=== PATIENT | male | born 1970 | race Caucasian/White ===

== ENCOUNTER 2022-12-08 13:44 | Emergency (ER) | payer OTHER, SELFPAY ==
--- NOTE | ~2022-12-08 | CT_ITS ---
EXAMINATION: CT ABDOMEN AND PELVIS WITHOUT CONTRAST CLINICAL INFORMATION: Right flank pain COMPARISON: 12/09/2009 TECHNIQUE: Multidetector volumetric imaging was performed from the superior aspect of the liver through the pubic symphysis. Sagittal and coronal reformatted images were obtained on the technologist's workstation. This CT examination was performed using dose optimization techniques as appropriate, variously including the following: *Automated exposure control *Adjustment of mA and/or kV according to patient size (this includes techniques or standardized protocols for targeted exams where dose is matched to indication/reason for exam; i.e. extremities or head) *Use of iterative reconstruction technique DLP: 569. mGy-cm FINDINGS: LUNG BASES: Mild emphysema. Normal heart size. LIVER, GALLBLADDER, AND BILIARY TREE: The liver is normal in size and shape with decreased attenuation. No focal hepatic lesion or biliary ductal dilatation is present. The gallbladder is contracted with no evidence of radiopaque gallstones, gallbladder wall thickening, or obvious pericholecystic inflammatory changes. PANCREAS: Mild atrophy with no focal abnormality. SPLEEN: Unremarkable. ADRENAL GLANDS: Unremarkable. KIDNEYS AND URETERS: The kidneys are normal in size, shape, and attenuation. No hydronephrosis or hydroureter. Surgical clips noted along the right kidney and proximal right ureter. There are prominent right lower pole renal calculi. The dominant calculus has a somewhat staghorn appearance measuring up to 2.5 cm. This measures 1220 Hounsfield units. This is 8.5 cm from the posterior axillary line. The stone is increased in size from the 2009 study. No left-sided calculi. . BLADDER: Unremarkable. GASTROINTESTINAL TRACT: Fluid throughout the stomach without wall thickening. Normal caliber small bowel. No obstruction. The appendix is likely absent. No colonic wall thickening or acute inflammation. No free air or free fluid. ABDOMINAL WALL: No significant hernia is appreciated. LYMPH NODES: Normal. VASCULAR: Normal caliber aorta with mild atherosclerotic calcification. PELVIC VISCERA: Calcifications in the prostate. Normal sized prostate. The seminal vesicles are unremarkable. OSSEOUS STRUCTURES: No acute or suspicious osseous abnormality. Posterior fusion hardware at L5-S1 with a disc spacer in place. CT/CT abdomen pelvis wo IV con IMPRESSION: 1. Prominent right lower pole renal calculus. No hydronephrosis. 2. Hepatic steatosis. Fleischner guidelines were followed.
--- NOTE | 2022-12-08 13:46 | ED_ITS ---
HPI - Abdominal Pain General Chief Complaint: Abdominal Pain <Anahi Cheng CNP - Last Filed: 12/08/22 13:49> Stated Complaint: Kidney stone <Anahi Cheng CNP - Last Filed: 12/08/22 13:49> Time Seen by Provider: 12/08/22 22:21 <Anahi Cheng CNP - Last Filed: 12/08/22 13:49> Source: patient <Trinity Richardson MD - Last Filed: 12/08/22 23:21> Mode of arrival: ambulatory <Trinity Richardson MD - Last Filed: 12/08/22 23:21> History of Present Illness HPI narrative: 52-year-old male with history of renal colic and reports right-sided flank pain for proximally 2 weeks without nausea or vomiting or fever or chills but does describe some burning on urination. <Trinity Richardson MD - Last Filed: 12/08/22 23:21> Related Data Home Medications: Previous Rx's Medication Instructions Recorded metformin 500 mg tablet 500 mg PO BIDWMEAL #60 tabs 12/08/22 <Anahi Cheng CNP - Last Filed: 12/08/22 13:49> Allergies/Adverse Reactions: Allergies Allergy/AdvReac Type Severity Reaction Status Date / Time No Known Allergies Allergy Verified 12/08/22 13:49 <Anahi Cheng CNP - Last Filed: 12/08/22 13:49> Review of Systems Review of Systems Pertinent positives and negatives as stated in HPI <Trinity Richardson MD - Last Filed: 12/08/22 23:21> [facility] Past Medical History Source: nursing notes reviewed <Trinity Richardson MD - Last Filed: 12/08/22 23:21> Social History Social History: Social History Advance Directives: No Advance Directives Information Provided: No <Anahi Cheng CNP - Last Filed: 12/08/22 13:49> Physical Exam ED Vital Signs: Vital Signs - 24 hr 12/08/22 13:47 12/08/22 21:29 12/08/22 21:37 Temperature 97.9 F 98.8 F Pulse Rate 119 H 94 Respiratory Rate 20 16 Blood Pressure 191/100 H 183/108 H Pulse Oximetry 98 99 Oxygen Delivery Method Room Air Room Air BMI result Body Mass Index 24.3 <Anahi Cheng CNP - Last Filed: 12/08/22 13:49> Vital Signs - 24 hr 12/08/22 13:47 12/08/22 21:29 12/08/22 21:37 Temperature 97.9 F 98.8 F Pulse Rate 119 H 94 Respiratory Rate 20 16 Blood Pressure 191/100 H 183/108 H Pulse Oximetry 98 99 Oxygen Delivery Method Room Air Room Air BMI result Body Mass Index 24.3 VITAL SIGNS: Reviewed. GENERAL: Well developed, well nourished, in no acute distress. HEAD: Normocephalic/atraumatic EYES: PERRLA, EOMI LUNGS: Normal breath sounds. No adventitious sounds or accessory muscle use. SpO2<99> CARDIOVASCULAR: Regular rate and rhythm without noted murmurs ABDOMEN: Soft, non-tender, non-distended with bowel sounds. MUSCULOSKELETAL: No tenderness, deformities, or effusions noted on gross inspection. EXTREMITIES: No cyanosis, clubbing or edema. SKIN: Inspection of the skin reveals no rashes NEUROLOGIC: Alert and oriented x 4. Strength and sensation to light touch were grossly intact x 4. <Trinity Richardson MD - Last Filed: 12/08/22 23:21> Course Course Course Narrative: This is an RME: Additional HPI, ROS, PE not included below will be deferred to primary provider. Patient is a 52-year-old male with past medical history of kidney stones who presents emergency department for evaluation of abdominal pain. Complaining of right flank pain, onset was a few weeks ago, pain is intermittent varying intensity, has not improved over the past few weeks . he has associated dysuria. Denies fevers, chills, nausea, vomiting, hematuria. Reports last known to be in approximately 2013 by which he underwent lithotripsy. Plan: labs, U/A, CT abdomen and pelvis <Anahi Cheng CNP - Last Filed: 12/08/22 13:49> Medical Decision Making Medical Decision Making MDM Narrative: 52-year-old male with history and clinical presentation after review of all investigations most consistent with new onset diabetes, no evidence of renal colic and noted to have a prominent right lower pole renal calculus without h ydronephrosis. Patient was informed of results, received IV fluids no evidence of acidosis or HHS and will be discharged with analgesics, metformin and strict instructions to follow-up with a primary care provider and also provided with a referral to follow-up with urology. He is otherwise hemodynamically stable for discharge. <Trinity Richardson MD - Last Filed: 12/08/22 23:21> Differential Diagnosis Please see the discussion above <Trinity Richardson MD - Last Filed: 12/08/22 23:21> Lab Data Please see the discussion above <Trinity Richardson MD - Last Filed: 12/08/22 23:21> Result Diagrams: 12/08/22 15:40 12/08/22 15:40 <Anahi Cheng CNP - Last Filed: 12/08/22 13:49> Labs: Lab Results 12/08/22 12/08/22 Range/Units 15:40 15:40 WBC 8.1 (4.8-10.8) X10*3/uL RBC 6.35 H (4.60-5.80) X10*6/uL Hgb 12.3 L (14.0-18.0) g/dl Hct 39.7 L (42.0-52.0) % MCV 62.5 L (80.0-98.0) fL MCH 19.4 L (27.0-33.0) pg MCHC 31.0 (31.0-36.0) g/dl RDW 16.2 H (11.0-16.0) % Plt Count 244 (160-400) X10*3/uL MPV 9.3 L (9.4-12.4) fL Immature Gran % (Auto) 0.9 H (0.0-0.4) % Neut % (Auto) 68.1 (45-73) % Lymph % (Auto) 20.4 (20-40) % Kenedy % (Auto) 7.4 (2-11) % Eos % (Auto) 2.6 (0-4) % Baso % (Auto) 0.6 (0-2) % Lymph # (Auto) 1.7 (1.2-4.9) X10*3/uL [place]enedy # (Auto) 0.6 (0.1-1.2) X10*3/uL Eos # (Auto) 0.2 (0.0-0.4) X10*3/uL Baso # (Auto) 0.1 (0.0-0.2) X10*3/uL Abs Immat Gran (auto) 0.07 H (0.00-0.03) X10*3/uL Absolute Neuts (auto) 5.6 (2.0-8.3) x10*3/uL Absolute Nucleated RBC 0.000 (0.0-0.012) X10*3/uL Nucleated RBC % (auto) 0.0 (0.0-0.2) /100WBC Sodium 136 (135-145) mmol/L Potassium 4.4 (3.3-5.1) mmol/L Chloride 99 (96-108) mmol/L Carbon Dioxide 29 (22-29) mmol/L Anion Gap 12 (12-20) BUN 13 (9-16) mg/dL Creatinine 0.85 (0.5-1.4) mg/dL Estim Creat Clear Calc 118.1 Estimated GFR > 60 Random Glucose 327 H (60-115) mg/dL Calcium 10.0 (8.4-10.2) mg/dL Total Bilirubin 0.4 (0.0-1.0) mg/dL AST 26 (5-37) U/L ALT 40 (0-40) U/L Alkaline Phosphatase 100 (39-117) U/L Total Protein 8.0 (6.5-8.0) g/dL Albumin 4.5 (3.5-5.0) g/dL <Anahi Cheng, [employer] - Last Filed: 12/08/22 13:49> Lab Results 12/08/22 12/08/22 Range/Units 15:40 15:40 WBC 8.1 (4.8-10.8) X10*3/uL RBC 6.35 H (4.60-5.80) X10*6/uL Hgb 12.3 L (14.0-18.0) g/dl Hct 39.7 L (42.0-52.0) % MCV 62.5 L (80.0-98.0) fL MCH 19.4 L (27.0-33.0) pg MCHC 31.0 (31.0-36.0) g/dl RDW 16.2 H (11.0-16.0) % Plt Count 244 (160-400) X10*3/uL MPV 9.3 L (9.4-12.4) fL Immature Gran % (Auto) 0.9 H (0.0-0.4) % Neut % (Auto) 68.1 (45-73) % Lymph % (Auto) 20.4 (20-40) % Kenedy % (Auto) 7.4 (2-11) % Eos % (Auto) 2.6 (0-4) % Baso % (Auto) 0.6 (0-2) % Lymph # (Auto) 1.7 (1.2-4.9) X10*3/uL Kenedy # (Auto) 0.6 (0.1-1.2) X10*3/uL Eos # (Auto) 0.2 (0.0-0.4) X10*3/uL Baso # (Auto) 0.1 (0.0-0.2) X10*3/uL Abs Immat Gran (auto) 0.07 H (0.00-0.03) X10*3/uL Absolute Neuts (auto) 5.6 (2.0-8.3) x10*3/uL Absolute Nucleated RBC 0.000 (0.0-0.012) X10*3/uL Nucleated RBC % (auto) 0.0 (0.0-0.2) /100WBC Sodium 136 (135-145) mmol/L Potassium 4.4 (3.3-5.1) mmol/L Chloride 99 (96-108) mmol/L Carbon Dioxide 29 (22-29) mmol/L Anion Gap 12 (12-20) BUN 13 (9-16) mg/dL Creatinine 0.85 (0.5-1.4) mg/dL Estim Creat Clear Calc 118.1 Estimated GFR > 60 Random Glucose 327 H (60-115) mg/dL Calcium 10.0 (8.4-10.2) mg/dL Total Bilirubin 0.4 (0.0-1.0) mg/dL AST 26 (5-37) U/L ALT 40 (0-40) U/L Alkaline Phosphatase 100 (39-117) U/L Total Protein 8.0 (6.5-8.0) g/dL Albumin 4.5 (3.5-5.0) g/dL <Trinity Richardson MD - Last Filed: 12/08/22 23:21> Radiology Impression Radiologist Impression: My interpretation of the imaging study is in agreement with radiology's impression. <Trinity Richardson MD - Last Filed: 12/08/22 23:21> Chronic Conditions Patient?s care impacted by: Diabetes <Trinity Richardson MD - Last Filed: 12/08/22 23:21> Critical Care Time Critical Care Time Critical Care Time: Yes <Trinity Richardson MD - Last Filed: 12/08/22 23:21> Total Critical Care Time: 30 <Trinity Richardson MD - Last Filed: 12/08/22 23:21> Attestation: I personally attest to this time spent taking care of the patient. <Trinity Richardson MD - Last Filed: 12/08/22 23:21> Discharge Plan Discharge Clinical Impression: Hyperglycemia due to diabetes mellitus, Calculus, renal, Diabetes mellitus, new onset <Anahi Cheng CNP - Last Filed: 12/08/22 13:49> Patient Disposition: Home, Self-Care <Anahi Cheng CNP - Last Filed: 12/08/22 13:49> Instructions: Type 2 Diabetes in Adults: New Diagnosis (ED), Diabetes and Nutrition (ED), Diabetes and Exercise (ED) <Anahi Cheng CNP - Last Filed: 12/08/22 13:49> Additional Instructions: 1. You have been diagnosed with new onset diabetes, you will be started on metformin, please take 1 pill daily for 3 days then follow prescription instructions. 2. You need to follow-up with your primary care provider as soon as possible, I will be giving you 1 month of medication. If you run out before you can get a follow-up appointment please return to this emergency room or any emergency room. 3. Please find the referral for Urology below. Call them on Sunday. Return to the ER for any worsening symptoms. <Anahi Cheng CNP - Last Filed: 12/08/22 13:49> Prescriptions: New metformin 500 mg tablet 500 mg PO BIDWMEAL Qty: 60 0RF <Anahi Cheng CNP - Last Filed: 12/08/22 13:49> Referrals: Franki Huggins MD [Physician] - <Anahi Cheng CNP - Last Filed: 12/08/22 13:49>
[2022-12-08 13:47] VITALS: BP 191/100; PULSE 119; RESP 20; TEMP 36.6; O2SAT 98; BMI 24.3
[2022-12-08 15:46] LABS: MANUAL DIFF FLAG NO
[2022-12-08 15:53] LABS: Basophils Absolute Auto 0.1 X10*3/uL (0.0-0.2); Basophils Percent Auto 0.6 % (0-2); Eosinophils Absolute Auto 0.2 X10*3/uL (0.0-0.4); Eosinophils Percent Auto 2.6 % (0-4); Hematocrit 39.7 % (42.0-52.0); Hemoglobin 12.3 g/dl (14.0-18.0); Imm Gran Abs Auto 0.07 X10*3/uL (0.00-0.03); Imm Gran Pct Auto 0.9 % (0.0-0.4); Lymphocytes Absolute Auto 1.7 X10*3/uL (1.2-4.9); Lymphocytes Percent Auto 20.4 % (20-40); Mean Corpuscular Hemoglobin 19.4 pg (27.0-33.0); Mean Platelet Volume 9.3 fL (9.4-12.4); Monocytes Absolute Auto 0.6 X10*3/uL (0.1-1.2); Monocytes Percent Auto 7.4 % (2-11); Neutrophils Absolute Auto 5.6 x10*3/uL (2.0-8.3); Neutrophils Percent Auto 68.1 % (45-73); Platelet Count 244 X10*3/uL (160-400); Red Blood Count 6.35 X10*6/uL (4.60-5.80); Red Cell Distribution Width 16.2 % (11.0-16.0); White Blood Count 8.1 X10*3/uL (4.8-10.8)
[2022-12-08 16:03] LABS: Alanine Aminotransferase 40 U/L (0-40); Albumin Level 4.5 g/dL (3.5-5.0); Alkaline Phosphatase 100 U/L (39-117); Anion Gap 12 (12-20); Aspartate Amino Transferase 26 U/L (5-37); Bilirubin Total 0.4 mg/dL (0.0-1.0); Blood Urea Nitrogen 13 mg/dL (9-16); Carbon Dioxide 29 mmol/L (22-29); Chloride 99 mmol/L (96-108); Creatinine Clr Calc Pharmacy 118.1; Estimated Glomerular Filt Rate > 60; Glucose Random 327 mg/dL (60-115); Potassium 4.4 mmol/L (3.3-5.1); Sodium 136 mmol/L (135-145)
[2022-12-08 16:06] LABS: Mean Corpuscular Volume 62.5 fL (80.0-98.0)
[2022-12-08 21:29] VITALS: BP 183/108; PULSE 94; RESP 16; O2SAT 99
[2022-12-08 21:37] VITALS: TEMP 37.1
[2022-12-08] MEDS: 0.9 % Sodium Chloride 1,000 ML 999 ML IV (23:27)
[2022-12-08] MEDS: Acetaminophen 325 MG TABLET 975 MG PO (23:28)
[2022-12-08] MEDS: Ketorolac Tromethamine 30 MG/ML VIAL 15 MG IVPUSH (23:28)
[2022-12-08 23:39] LABS: Appearance Urine Clear; Color Urine Yellow; Glucose Urine UA Negative (Negative); Leukocyte Esterase Urine Small (1+) (Negative); Nitrite Urine Negative (Negative); Specific Gravity - Urine 1.025 (1.005-1.025); UMIC TRIGGER UACC YES; Urine Blood Moderate (2+) (Negative); Urine Ketones Negative (Negative); Urine Protein 30 (1+) mg/dL (Neg-Trace)
[2022-12-08 23:43] LABS: Bacteria Urine None Seen (None Seen); Hyaline Casts Urine 0-2 /LPF (0-2); RBC Urine >20 /HPF (0-2); Squamous Epithelial Cell Urine 0-2 /HPF (0-2); UACC Culture Trigger YES; WBC Urine 21-50 /HPF (0-5)
[2022-12-09 00:35] LABS: Glucose, Whole Blood 239 mg/dL (60-115)
[2022-12-09 00:37] VITALS: BP 154/93; PULSE 79; RESP 16; TEMP 36.2; O2SAT 99
[2022-12-09 05:10] LABS: Estimated Average Glucose 194 mg/dL; Hemoglobin A1c % 8.4 %
== END 2022-12-09 00:43 | disposition home or self-care (01) ==
PROVIDERS: Nurse Practitioner Family; Emergency Provider Student in an Organized Health Care Education/Training Program
DX: E11.65 Type 2 diabetes mellitus with hyperglycemia (principal); N20.0 Calculus of kidney; Z79.899 Other long term (current) drug therapy
CPT/HCPCS: 36415; 74176; 80053; 81001; 82947; 83036; 85025; 87086; 96374; 99284; 99285; J1885

== ENCOUNTER → 2022-12-18 08:50 | Outpatient (BNVA) | payer OTHER, SELFPAY | PROVIDERS: PCP Hospitalist; Visit Provider Urology | DX: N20.0 Calculus of kidney (principal); N12 Tubulo-interstitial nephritis, not specified as acute or chronic; R10.9 Unspecified abdominal pain; Z85.528 Personal history of other malignant neoplasm of kidney | CPT/HCPCS: 99202 ==

== ENCOUNTER → 2022-12-27 08:42 | Outpatient (BNVA) | payer OTHER, SELFPAY | PROVIDERS: PCP Hospitalist; Visit Provider Urology | DX: N20.0 Calculus of kidney (principal) | CPT/HCPCS: 99212 ==

== ENCOUNTER → 2023-01-31 09:46 | Outpatient (BNVA) | payer OTHER, SELFPAY | PROVIDERS: PCP Hospitalist; Visit Provider Urology | DX: N12 Tubulo-interstitial nephritis, not specified as acute or chronic (principal); N20.0 Calculus of kidney | CPT/HCPCS: Q3014 ==

== ENCOUNTER 2023-02-12 13:28 | Day surgery (SDC) | payer OTHER, SELFPAY ==
[2023-02-07 15:45] VITALS: BMI 23.1
--- NOTE | 2023-02-09 11:01 | P.CONAN_ITS ---
Documented by User: Jacinda Rehman NP 02/09/23 11:02 HPI - Anesthesia Eval Consult details Narrative: 52yo M for Right Cystoscopy, Ureteroroscopy, Retro, Laser, possible stent PMFSH Active Problems Active Problems: All Active Problems (Updated 02/07/23 @ 15:35 by Helena Boucher RN) History of kidney cancer (Acute) Staghorn calculus (Acute) Pyelonephritis (Acute) Right renal stone (Acute) Right flank pain (Acute) Opioid use disorder (Acute) Dental caries (Acute) Disrupted sleep-wake cycle (Acute) Diabetes (Acute) Past Medical History Medical History (Updated 02/12/23 @ 13:57 by Isabela Villa) COPD (chronic obstructive pulmonary disease) Diabetes History of kidney cancer Methadone dependence Surgical History Surgical History (Updated 02/12/23 @ 13:57 by Isabela Villa) History of kidney surgery Hx of appendectomy Previous back surgery Social History Social History Patient Tobacco Use Status: Former Tobacco user Tobacco use type: Cigarette Smoked in Last 30 Days: No e-Cigarette/Vaping Use: Never Used Use of substances other than those prescribed or required for medical reasons: No Are you DNR?: No Advance Directives: No Advance Directives Information Provided: Yes Current occupational status: disabled Meds Allergies Allergy/AdvReac Type Severity Reaction Status Date / Time No Known Allergies Allergy Verified 02/12/23 13:58 Home Medications Medication Instructions Recorded Confirmed Last Taken Type omeprazole 40 mg capsule,delayed 40 mg PO DAILY 12/15/22 02/12/23 Unknown History release methadone 24 mg PO DAILY 12/21/22 02/12/23 02/11/23 History albuterol 02/12/23 Unknown History hydromorphone 2 mg tablet 2 mg PO Q6H PRN pain 02/12/23 02/12/23 02/12/23 07:00 History 4 MG omeprazole 02/12/23 02/12/23 History Exam Exam Date and Time: February 09, 2023 1101 Height,Weight and Vital Signs: Height 6 ft 2 in Weight 81.647 kg Pertinent Lab Results Pertinent Lab Results: Laboratory Tests 12/08/22 12/08/22 15:40 15:40 WBC 8.1 Hgb 12.3 L Hct 39.7 L Plt Count 244 Sodium 136 Potassium 4.4 Chloride 99 Carbon Dioxide 29 BUN 13 Creatinine 0.85 Assessment and Plan Assessment Anesthesia Assessment: Chart Reviewed Documented by User: Tina Reddy MD 02/12/23 15:14 [facility] Past Medical History Medical History (Updated 02/12/23 @ 13:57 by Isabela Villa) COPD (chronic obstructive pulmonary disease) Diabetes History of kidney cancer Methadone dependence Family History Family history of problems with anesthesia: No Surgical History Surgical History (Updated 02/12/23 @ 13:57 by Isabela Villa) History of kidney surgery Hx of appendectomy Previous back surgery History of Problems with Anesthesia: No Social History Social History Patient Tobacco Use Status: Former Tobacco user Tobacco use type: Cigarette Smoked in Last 30 Days: No e-Cigarette/Vaping Use: Never Used Use of substances other than those prescribed or required for medical reasons: No Are you DNR?: No Advance Directives: No Advance Directives Information Provided: Yes Current occupational status: disabled Meds Allergies Allergy/AdvReac Type Severity Reaction Status Date / Time No Known Allergies Allergy Verified 02/12/23 13:58 Home Medications Medication Instructions Recorded Confirmed Last Taken Type omeprazole 40 mg capsule,delayed 40 mg PO DAILY 12/15/22 02/12/23 Unknown History release methadone 24 mg PO DAILY 12/21/22 02/12/23 02/11/23 History albuterol 02/12/23 Unknown History hydromorphone 2 mg tablet 2 mg PO Q6H PRN pain 02/12/23 02/12/23 02/12/23 07:00 History 4 MG omeprazole 02/12/23 02/12/23 History Exam Airway Mallampati Class: II (missing multiple teeth, denies anything loose) TM Dist: >3cm Neck ROM: Full Heart: rrr Lungs: cta Assessment and Plan Assessment Anesthesia Assessment: Anesthesia Plan Discussed (hiatory of GERD, took medicine , no symptoms) Final Anesthetic Review Family History of Problems with Anesthesia: No History of Problems with Anesthesia: No NPO: Yes ASA Class: II Final Preanesthetic Review: No Changes in Pt Med Stat, Meds/Allgs Chart Reviewed and Consent Obtained/Reviewed Patient Risk: Intermediate Procedure Risk: Intermediate Anesthetic Plan Anesthetic Plan: GA Disposition: Standard PACU
[2023-02-12] VITALS (10 sets, daily range): BP systolic 136–181; BP diastolic 81–107; PULSE 90–124; RESP 13–18; TEMP 36.3–37.1; O2SAT 96–99; BMI 24.4
--- NOTE | ~2023-02-12 | FL_ITS ---
EXAMINATION: XR FLUOROSCOPY WITH IMAGES CLINICAL INFORMATION: Urinary tract calculi. COMPARISON: CT abdomen and pelvis noncontrast 12/08/2022. TECHNIQUE: Fluoroscopy Supervised By: Dr. Franki Huggins. Fluoroscopy Time: 39 seconds. Cumulative Dose: 7.74 mGy. Images: 4. FINDINGS: There is guidewire and contrast in the right renal collecting system on initial images. Final image shows right ureteral stent with proximal pigtail end overlying upper pole right collecting system. There are known right renal calculi on recent CT. FL/FL guidance in OR IMPRESSION: Fluoroscopy for urologic procedures.
[2023-02-12 14:04] LABS: Glucose, Whole Blood 221 mg/dL (60-115)
[2023-02-12] MEDS: Lactated Ringers 1,000 ML 100 ML IVCONT (14:14)
--- NOTE | 2023-02-12 14:15 | PC.NURSE ---
DR. KNOX MADE AWARE OF PATIENTS HR IN THE 120'S. PATIENT ALSO DID NOT TAKE MORNING METHADONE. PATIENT TOOK 4MG PO DILAUDID FOR PAIN THIS MORNING, STILL CURRENTLY IN 8/10 PAIN, ASKING FOR MORE PAIN MEDICATION NOW. UTOX ORDERED AND URINE OBTAINED. AWAITING RESULTS.
[2023-02-12 15:04] LABS: Amphetamine Screen Urine Not Detected (Not Detect); Barbiturates, Urine Not Detected (Not Detect); Benzodiazepines Screen Urine Not Detected (Not Detect); Cannabinoid Screen Urine Not Detected (Not Detect); Cocaine Screen Urine Not Detected (Not Detect); Fentanyl, urine Not Detected (Not Detect); Opiate Screen Urine POSITIVE (Not Detect); Phencyclidine Screen Urine Not Detected (Not Detect)
--- NOTE | 2023-02-12 15:04 | PC.NURSE ---
REPORT GIVEN TO YUMIKO HEAT CURER AT 1300
--- NOTE | 2023-02-12 15:05 | MHC.SHP ---
Pre-Procedural Eval Section A Date of Service: 02/12/23 The patient is an INPATIENT: No Changes since office visit: No Cold of Flu in the past 2 weeks, No New Medical Problems, No Changes in Medication and No Patient answered all questions The History & Physical has been completed within 30 days and I have reviewed it.: Yes Section B Chief Complaint: Calculus of kidney Allergies: Allergies Allergy/AdvReac Type Severity Reaction Status Date / Time No Known Allergies Allergy Verified 02/12/23 13:58 Review of Systems Sugical H&P ROS: Negative: Constitution, Cardiovascular, Respiratory, Neurological, Psychiatric, Hem-Onc, Allergic/Immunologic, Gastrointestinal, Genitourinary, Musculoskeletal, Integumentary, Endocrine and Eyes/Ears/Nose/Throat Exam Surgical H&P Exam: Normal: HEENT, Normal: Heart, Normal: Lungs, Normal: Extremities, Normal: Abdomen, Normal: Skin and Normal: Neurological Plan Diagnosis/Plan: Unchanged (Cystoscopy, right retrograde, right ureteroscopy with laser lithotripsy stent placement) I have reviewed the history and physical and performed a pertinent physical examination on my patient. No changes have occurred unless specified. Time Spent With Patient Time: Total time managing care of this patient today ____ minutes.
--- NOTE | 2023-02-12 16:40 | W.PM.OPN ---
Operative Note Operative Note Date of Service: 02/12/23 Narrative: PreOperative Diagnosis: Lower pole branching stone, staghorn Post Operative Diagnosis: Right lower pole branching stone, staghorn Procedure: - cystoscopy, right retrograde - right dilatation of ureteric orifice under fluoroscopy - right ureteroscopy, laser lithotripsy, stone basketing - right stent placement Surgeon: Dr Franki Huggins Anesthesia: General Indications for procedure: Right lower pole branching staghorn. Prior PCNL would not like to repeat. Pain. Recommend ureteroscopy with laser lithotripsy. May require more than 1 procedure. He understands this is potentially staged. He would rather do this in a staged fashion being able to return home each evening Procedure: After informed consent was verified patient was brought to the operating placed in supine position. Anesthesia was administered per protocol. Patient was placed in modified dorsal lithotomy position and prepped and draped in a sterile fashion. Safety pause time-out and side of surgery confirmed. Antibiotics confirmed. 22 Romansh cystoscope was inserted per urethra. Bladder was normal in its entirety. Both ureteric orifices were in normal position. The right ureteric orifice was cannulated and a retrograde examination was performed. Filling defect lower pole anterior and posterior calices.. A Sensor guidewire was placed up to the level of the renal pelvis under fluoroscopy. The rigid cystoscope was removed and the inner cannula of ureteric access sheath was used under fluoroscopy to dilate the ureteric orifice. The ureteric access sheath was placed and the inner cannula with access wire removed. The digital flexible ureteral scope was placed. Stone was encountered. Using a 272 laser fiber visible accessible stone was broken into small pieces. This the 2 arms of stone in 2 separate pieces. They felt back into the lower pole calyx. Due to the anatomy the kidney and prior partial nephrectomy these were unable to be reached. A decision was made to stop the procedure after attempting to manipulate the stone with the basket did not work. Will require ESWL to complete. At the completion of the stone procedure a Sensor wire was placed back into the renal pelvis. The rigid cystoscope was backloaded over the wire and advanced into the bladder. A 6 Romansh by variable cm double-J stent was placed into the renal pelvis and bladder under a combination of fluoroscopy and direct visualization. The bladder was emptied. The patient tolerated the procedure well and was extubated in the operating room, and transferred in stable condition to the recovery area. Pathology: - Drains: As above
[2023-02-12] MEDS: Phenazopyridine HCL 100 MG TABLET PO (17:01)
[2023-02-12] MEDS: HYDROmorphone HCl 2 MG TABLET PO (17:26)
[2023-02-12] MEDS: oxyBUTYnin chloride ER 5 MG TAB.ER.24 PO (18:08)
== END 2023-02-12 19:00 | disposition home or self-care (01) ==
PROVIDERS: Anesthesiology; PCP Hospitalist; Visit Provider Urology
PROC: (CPT 52356; principal; 2023-02-12 14:40)
DX: N20.0 Calculus of kidney (principal); Z85.528 Personal history of other malignant neoplasm of kidney; Z90.5 Acquired absence of kidney; N12 Tubulo-interstitial nephritis, not specified as acute or chronic; J44.9 Chronic obstructive pulmonary disease, unspecified; E11.9 Type 2 diabetes mellitus without complications; Z79.84 Long term (current) use of oral hypoglycemic drugs; Z79.891 Long term (current) use of opiate analgesic; Z79.899 Other long term (current) drug therapy; Z98.890 Other specified postprocedural states; Z87.891 Personal history of nicotine dependence
CPT/HCPCS: 52356; 80307; 82947; C1758; C1769; C2617; J0131; J1100; J1885; J1956; J2250; J2405; J3010; Q9967

== ENCOUNTER 2023-02-20 12:54 | Outpatient (AMB) | payer OTHER, SELFPAY ==
--- NOTE | 2023-02-20 12:56 | MHC.OFFVIS ---
Intake Intake Visit Reasons: Stent removal-post op Intake Note: Patient is present for Stent Removal Stent Placed: 02/12/23 Urology Med: Oxybutynin, Tamsulosin Antibiotic Allergy:None Blood Thinner: None Disposable Cystoscope LOT: [id number] EXP: 04/12/2025 Allergies No Known Allergies Allergy (Verified 02/20/23 12:57) HPI HPI Comments History of Present Illness Details Chirag is a pleasant male. He is a patient of . He is seen for the following urologic conditions - nephrolithiasis - renal cell carcinoma Discussion regarding prior surgery Had initially been planned on stent removal We will do ESWL and remove stent at time of procedure He would prefer this Nephrolithiasis Prior partial nephrectomy open 2004 Dr. Amor Appears to have developed lower pole stone Prior ESWL Concomitant diabetes with metformin Imaging - 12/28 CT Right dominant calculus has a somewhat staghorn appearance measuring up to 2.5 cm Intervention - 02/27 ureteroscopy with laser lithotripsy right side Recommendation for ESWL of remnant fragments [facility] Medical History COPD (chronic obstructive pulmonary disease) Diabetes History of kidney cancer Methadone dependence Surgical History History of kidney surgery Hx of appendectomy Previous back surgery Social History Patient Tobacco Use Status: Former Tobacco user Tobacco use type: Cigarette e-Cigarette/Vaping Use: Never Used Current occupational status: disabled Review of Systems Const Denies chills and Denies fever(s) Card Reports no additional complaints and Denies syncope Resp Denies cough GI Denies abdominal pain and Denies heartburn Reports as per HPI and Denies change in libido Neuro Denies syncope Psych Denies change in libido Endo Denies change in libido Physical Exam Const General: cooperative, healthy appearing, comfortable and no acute distress Orientation/consciousness: patient oriented x3 HEENT Face and sinus: Yes normal facial exam Mouth: moist mucous membranes Neck Neck: Yes normal visual inspection, Yes full ROM and Yes trachea midline Chest Chest palpation & inspection: normal inspection of the chest Resp Effort & Inspection: normal respiratory effort, able to speak in complete sentences and no respiratory distress GI Inspection: Yes normal to inspection Back/Spine/Pelvis Cervical Spine: normal cervical lordosis Thoracic/Lumbar Spine: thoracic and lumbar spine normal to inspection Skin General skin exam: no rashes or lesions noted Neuro General: patient oriented x3, gait normal, tone normal and moves all extremities Extrem General: Yes normal to inspection and Yes capillary refill normal Office Procedures Cystoscopy Consent Discussed risk and benefit or proposed procedure with the patient. Information consent for procedure given to the patient. Discussed technical aspects, risks, benefits and alternatives in full. Addressed all of the patient's questions and concerns regarding the procedure. The patient demonstrated knowledge and understanding. They wish to proceed with this procedure. Preparation The patient was prepped in the usual manner. A enterprise security architect was present and in the room. Genitalia was prepped with betadine solution in a sterile manner. Lidocaine Jelly 2% was placed into the urethra and 16Fr flexible Olympus cystoscope was inserted into the meatus after adequate lubrication. Assessment & Plan Assessment & Plan (1) Staghorn calculus: Code(s): N20.0 - Calculus of kidney (2) History of kidney cancer: Code(s): Z85.528 - Personal history of other malignant neoplasm of kidney Plan Plan for ESWL of right remnant with stent removal Orders: Orders AMB Cystoscopy 02/20/23 N20.0 - Calculus of kidney AMB Urinalysis Automated 02/20/23 Z13.9 - Encounter for screening, unspecified Medications: New naproxen 500 mg PO ONCE 1 tab 0RF N20.0 - Calculus of kidney nitrofurantoin monohyd/m-cryst 100 mg 100 mg PO ONCE 1 cap 0RF N20.0 - Calculus of kidney lidocaine HCl 2% 10 mL intra-urethral ONCE 10 mL 0RF N20.0 - Calculus of kidney Patient Instructions: Imaging studies, laboratory and physical exam results were discussed and reviewed in detail. No major barriers to patient understanding were identified. An opportunity to ask questions regarding the treatment plan was provided. All questions were answered. The patient expressed understanding and agreement with the above treatment plan. The patient is aware they should contact our office by phone for worsening of their current condition or the appearance of new urologic symptoms. Compliance is encouraged with any medications and followup testing that is ordered. It is a privilege to participate in the urologic care of your patient. If you have any questions or concerns regarding treatment for the above conditions, or other urologic issues, please do not hesitate to contact me. The office telephone contact is [phone]. This note is constructed using voice recognition software. While every effort has been made to ensure accuracy production broacher errors may have been included. Yours sincerely, Dr Franki Huggins MD, [facility] - Urology Providers of Expert, Compassionate Care for the Genitourinary System Coding Level of Care Code Est Pt Level 3 (88436) Diagnoses Staghorn calculus N20.0 History of kidney cancer Z85.528
== END 2023-02-20 13:55 | disposition home or self-care (01) ==
LOC: HO.HUSH 12:54
PROVIDERS: PCP Hospitalist; Visit Provider Urology
DX: N20.0 Calculus of kidney (principal); Z85.528 Personal history of other malignant neoplasm of kidney
CPT/HCPCS: 99213

== ENCOUNTER → 2023-02-20 12:54 | Outpatient (BNVA) | payer OTHER, SELFPAY | PROVIDERS: PCP Hospitalist; Visit Provider Urology | DX: N20.0 Calculus of kidney (principal); Z85.528 Personal history of other malignant neoplasm of kidney | CPT/HCPCS: 99212 ==

== ENCOUNTER 2023-03-14 06:03 | Day surgery (SDC) | payer OTHER, SELFPAY ==
--- NOTE | 2023-03-13 10:42 | HO.ANESPROP2 ---
Documented by User: Jacinda Rehman NP 03/13/23 10:44 HPI - Anesthesia Eval Consult details Narrative: 52yo M for Right ESWL with Stent Removal s/p cysto, etc 02/2023 with GA-LMA 4 ?Methadone vs hydromorphone daily PMFSH Active Problems Active Problems: All Active Problems (Updated 02/12/23 @ 13:57 by Isabela Villa) History of kidney cancer (Acute) Staghorn calculus (Acute) Pyelonephritis (Acute) Right renal stone (Acute) Right flank pain (Acute) Opioid use disorder (Acute) Dental caries (Acute) Disrupted sleep-wake cycle (Acute) Diabetes (Acute) Past Medical History Medical History COPD (chronic obstructive pulmonary disease) Diabetes History of kidney cancer Methadone dependence Family History Family history of problems with anesthesia: No Surgical History Surgical History History of kidney surgery Hx of appendectomy Previous back surgery History of Problems with Anesthesia: No Social History Social History Patient Tobacco Use Status: Former Tobacco user Tobacco use type: Cigarette e-Cigarette/Vaping Use: Never Used Current occupational status: disabled Meds Allergies Allergy/AdvReac Type Severity Reaction Status Date / Time No Known Allergies Allergy Verified 02/20/23 12:57 Home Medications Medication Instructions Recorded Confirmed Last Taken Type omeprazole 40 mg capsule,delayed 40 mg PO DAILY 12/15/22 02/12/23 03/13/23 History release methadone 24 mg PO DAILY 12/21/22 02/12/23 03/13/23 History albuterol 02/12/23 12/12/22 History Exam Exam Date and Time: March 13, 2023 1042 Pertinent Lab Results Pertinent Lab Results: Laboratory Tests 12/08/22 12/08/22 15:40 15:40 WBC 8.1 Hgb 12.3 L Hct 39.7 L Plt Count 244 Sodium 136 Potassium 4.4 Chloride 99 Carbon Dioxide 29 BUN 13 Creatinine 0.85 Assessment and Plan Assessment Anesthesia Assessment: Chart Reviewed Final Anesthetic Review Family History of Problems with Anesthesia: No History of Problems with Anesthesia: No Documented by User: Marilin Mena MD 03/14/23 08:57 PMFSH Active Problems Active Problems: All Active Problems (Updated 03/14/23 @ 07:15 by Marilin Mena MD) History of kidney cancer (Acute) Staghorn calculus (Acute) Pyelonephritis (Acute) Right renal stone (Acute) Right flank pain (Acute) Opioid use disorder (Acute) Dental caries (Acute) Disrupted sleep-wake cycle (Acute) Diabetes (Acute) Past Medical History Medical History COPD (chronic obstructive pulmonary disease) Diabetes History of kidney cancer Methadone dependence Surgical History Surgical History History of kidney surgery Hx of appendectomy Previous back surgery Social History Social History Patient Tobacco Use Status: Former Tobacco user Tobacco use type: Cigarette e-Cigarette/Vaping Use: Never Used Current occupational status: disabled Meds Allergies Allergy/AdvReac Type Severity Reaction Status Date / Time No Known Allergies Allergy Verified 02/20/23 12:57 Home Medications Medication Instructions Recorded Confirmed Last Taken Type omeprazole 40 mg capsule,delayed 40 mg PO DAILY 12/15/22 02/12/23 03/13/23 History release methadone 24 mg PO DAILY 12/21/22 02/12/23 03/13/23 History albuterol 02/12/23 12/12/22 History Exam Height,Weight and Vital Signs: Height 6 ft 2 in Weight 86.183 kg Vital Signs Temp Pulse Resp BP Pulse Ox O2 Del Method 03/14/23 07:34 157/83 H 03/14/23 07:00 98 F 106 H 20 192/97 H 99 Room Air Pertinent Lab Results Pertinent Lab Results: Laboratory Tests 12/08/22 12/08/22 15:40 15:40 WBC 8.1 Hgb 12.3 L Hct 39.7 L Plt Count 244 Sodium 136 Potassium 4.4 Chloride 99 Carbon Dioxide 29 BUN 13 Creatinine 0.85 Lab Results 03/14/23 Range/Units 06:56 POC Glucose 188 H (60-115) mg/dL Airway Mallampati Class: II TM Dist: >3cm Neck ROM: Full Loose/Missing/Broken Teeth: Yes (Many missing. Some broken. denies loose) Heart: RRR Lungs: CTAB Assessment and Plan Assessment Anesthesia Assessment: Anesthesia Plan Discussed Final Anesthetic Review NPO: Yes ASA Class: II Final Preanesthetic Review: No Changes in Pt Med Stat, Meds/Allgs Chart Reviewed, Consent Obtained/Reviewed and Anes Risks/Benef Reviewed Patient Risk: Low Procedure Risk: Low Assessment/Block/Sedation in SS: Assess/Block/Sedation-SS Anesthetic Plan Anesthetic Plan: GA Disposition: Standard PACU
[2023-03-14] VITALS (8 sets, daily range): BP systolic 148–192; BP diastolic 83–97; PULSE 92–109; RESP 18–20; TEMP 36.1–36.7; O2SAT 95–99; BMI 24.4
--- NOTE | ~2023-03-14 | XR_ITS ---
EXAMINATION: XR ABDOMEN KUB CLINICAL INDICATION: Right kidney stone COMPARISON: CT scan of the abdomen and pelvis dated 12/08/2022. TECHNIQUE: AP view of the abdomen. FINDINGS: A right ureteral stent is noted in place. A small staghorn type calculus is again seen overlying the lower pole the right kidney. No radiopaque densities overlie the left kidney or along the expected courses of the ureters bilaterally. There is a nonobstructive bowel gas pattern. Mild gas and stool seen within the colon distally to the rectum. Spinal fusion hardware is noted at L5-S1 without abnormality. XR/XR KUB IMPRESSION: 1. Right ureteral stent in place with right lower pole staghorn type calculus without significant change. 2. Nonobstructive bowel gas pattern.
[2023-03-14 07:01] LABS: Glucose, Whole Blood 188 mg/dL (60-115)
[2023-03-14] MEDS: Lactated Ringers 1,000 ML 999 ML IV (07:38)
--- NOTE | 2023-03-14 07:49 | MHC.SHP ---
Pre-Procedural Eval Section A Date of Service: 03/14/23 The patient is an INPATIENT: No Changes since office visit: No Cold of Flu in the past 2 weeks, No New Medical Problems, No Changes in Medication and No Patient answered all questions The History & Physical has been completed within 30 days and I have reviewed it.: No Section B Chief Complaint: Calculus of kidney Allergies: Allergies Allergy/AdvReac Type Severity Reaction Status Date / Time No Known Allergies Allergy Verified 02/20/23 12:57 Review of Systems Sugical H&P ROS: Negative: Constitution, Cardiovascular, Respiratory, Neurological, Psychiatric, Hem-Onc, Allergic/Immunologic, Gastrointestinal, Genitourinary, Musculoskeletal, Integumentary, Endocrine and Eyes/Ears/Nose/Throat Exam Surgical H&P Exam: Normal: HEENT, Normal: Heart, Normal: Lungs, Normal: Extremities, Normal: Abdomen, Normal: Skin and Normal: Neurological Plan Diagnosis/Plan: Unchanged (right ESWL with cysto stent removal) I have reviewed the history and physical and performed a pertinent physical examination on my patient. No changes have occurred unless specified. Time Spent With Patient Time: Total time managing care of this patient today ____ minutes.
--- NOTE | 2023-03-14 08:46 | W.PM.OPN ---
Operative Note Operative Note Date of Service: 03/14/23 Narrative: PreOperative Diagnosis: right Renal stones with indwelling stent Post Operative Diagnosis: right Renal stones with indwelling stent Procedure: right ESWL with cysto right stent removal Surgeon: Dr Franki Huggins Anesthesia: mac/sedation Indications for procedure: The patient understands ESWL may be a staged procedure and subsequent intervention may be required based on imaging after ESWL. Quoted stone clearance rates for a solitary procedure are in the 70-80% range based primarily on stone location. They also understand there is a risk of bleeding to the kidney, infection, damage to adjacent organs, and stone migration following the procedure. - Imaging - right lower pole stones Procedure: After informed consent was verified the patient was brought to the operating room and placed in a supine position. Anesthesia was performed per protocol. Safety pause time-out was performed. Imaging was displayed in the room and laterality confirmed. ESWL was performed. The 1st 500 shocks were performed at 60 hertz. These were performed with increasing power. Once maximum power was reached the rate was increased to 180 hertz. A total of 2500 shocks were given. Targeted imaging with ultrasound/fluoroscopy showed stone smudging suggestive of disintegration. The patient tolerated the procedure well and was transferred to the recovery area upon completion. Post procedure imaging will be organized. There was no evidence for flank discoloration.
[2023-03-14] MEDS: Phenazopyridine HCL 100 MG TABLET PO (08:50)
[2023-03-14] MEDS: oxyCODONE HCl Immed Release 5 MG TABLET PO ×2 (08:51→09:27)
[2023-03-14] MEDS: Ketorolac Tromethamine 15 MG/ML VIAL IVPUSH (08:52)
== END 2023-03-14 10:20 | disposition home or self-care (01) ==
PROVIDERS: PCP Hospitalist; Visit Provider Urology
PROC: (CPT 50590; principal; 2023-03-14 07:30)
DX: N20.0 Calculus of kidney (principal); J44.9 Chronic obstructive pulmonary disease, unspecified; E11.9 Type 2 diabetes mellitus without complications; Z85.528 Personal history of other malignant neoplasm of kidney; Z79.891 Long term (current) use of opiate analgesic; Z79.84 Long term (current) use of oral hypoglycemic drugs; Z87.891 Personal history of nicotine dependence; Z98.890 Other specified postprocedural states
CPT/HCPCS: 50590; 74018; 82947; J0131; J1100; J1885; J1956; J2250; J2405; J3010

== ENCOUNTER 2023-12-19 12:58 | Outpatient (AMB) | payer OTHER, SELFPAY ==
--- NOTE | 2023-12-19 12:59 | MHC.PC.OV ---
Vital Signs 12/19/23 13:00 Height 6 ft 2 in Weight 180 lb BMI 23.1 BP 154/90 H Blood Pressure Location Lt brachial Position Sitting Pulse 90 Pulse Source Pulse Oximeter Pulse Oximetry (%) 99 Oxygen Delivery Method Room Air Intake Visit Reasons: tooth pain Intake Note: pt states tooth pain and infection. Agriscience Instructor Required: No Allergies No Known Allergies Allergy (Verified 12/19/23 13:18) Medication List - Last Reconciled 12/19/23 by Eve Connolly, BLENDER-BC [albuterol ] albuterol sulfate 2.5 mg (3 mL) inhalation Q4-6H PRN blood sugar diagnostic (FreeStyle Lite Strips) As directed check blood sugar twice a day and prn blood-glucose meter (FreeStyle Lite Meter kit) As directed flash glucose sensor (FreeStyle Clint 2 Sensor kit) As directed hydromorphone (Dilaudid) 2 mg PO Q4-6H PRN lancets (FreeStyle Lancets) As directed check blood sugar twice a day and prn as needed metformin take two in the am and one with your meal in the pm orally; methadone 24 mg PO DAILY omeprazole 40 mg PO DAILY tamsulosin 0.4 mg PO BEDTIME 30 days Tobacco use date assessed: 12/19/23 Dental Screening Dental Screen Date: 12/19/23 HPI HPI Comments History of Present Illness Details Here today with acute on chronic dental issues needs 8-9 dental extractions done having recurrent infections having lots of pain, not able to sleep Self treated w/ Amox x 2 doses about 1 week ago. Specialists: Urology [facility] Medical History COPD (chronic obstructive pulmonary disease) Diabetes History of kidney cancer Methadone dependence Surgical History History of kidney surgery Hx of appendectomy Previous back surgery Social History Patient Tobacco Use Status: Former Tobacco user Tobacco use type: Cigarette e-Cigarette/Vaping Use: Never Used Current occupational status: disabled Cognitive needs: No Hearing needs: No Vision needs: No Questionnaire Thrive Questionnaire Date Thrive assessed: 12/19/23 AUDIT C Alcohol Use Questionnaire (AUDIT-C) 1. How often do you have a drink containing alcohol?: Never 3. How often do you have six or more drinks on one occasion?: Never Total Score: 0 Score Reviewed/Action Taken: No KI-7 AMB Questionnaire KI-7 Date KI - 7 assessed: 01/08/23 Source: Developed by Drs. Karl Clarke, Melinda Ellis, Tray Patel and colleagues, with an educational zenaida from [employer]. Review of Systems Const All systems reviewed & are unremarkable except as noted in HPI and below Physical exam (Primary Care) Vital Signs: Last Vital Signs Pulse 90 12/19/23 13:00 BP 154/90 H 12/19/23 13:00 Pulse Ox 99 12/19/23 13:00 Oxygen Delivery Method Room Air 12/19/23 13:00 BMI result Body Mass Index 23.1 Tobacco/Smoking Status: Tobacco use Status Tobacco use date assessed 12/19/23 12/19/23 13:01 Patient Tobacco Use Status Former Tobacco user 12/19/23 13:01 Tobacco use type Cigarette 12/19/23 13:01 e-Cigarette/Vaping Use Never Used 12/19/23 13:01 Thrive Assessment: Date of Thrive Assessment Date Thrive assessed 12/19/23 12/19/23 13:01 Const Other: awake alert MMM missing, carious, broken teeth throughout Assessment and Plan Assessment & Plan (1) Dental caries: Comment: urged to f/u with dentist for extraction VARINDER Clindamycin as directed Code(s): K02.9 - Dental caries, unspecified Medications: New clindamycin HCl 300 mg PO Q8H 7 days 21 caps 0RF Coding Level of Care Code Est Pt Level 3 (44989) Diagnoses Dental caries K02.9
[2023-12-19 13:00] VITALS: BP 154/90; PULSE 90; O2SAT 99; BMI 23.1
== END 2023-12-19 15:04 | disposition home or self-care (01) ==
PROVIDERS: PCP Hospitalist; Visit Provider Nurse Practitioner Family
DX: K02.9 Dental caries, unspecified (principal)
CPT/HCPCS: 99213

== ENCOUNTER 2024-01-03 10:47 | Outpatient (AMB) | payer OTHER, SELFPAY ==
--- NOTE | 2024-01-03 11:47 | AM.OFFWIN_ITS ---
Intake Vital Signs 01/03/24 11:48 Height 6 ft 2 in Weight 180 lb BMI 23.1 BP 160/80 H Blood Pressure Location Lt brachial Position Sitting Pulse 111 H Pulse Source Pulse Oximeter Temp 97.4 F Temp Source Temporal Artery Scan Pulse Oximetry (%) 95 Oxygen Delivery Method Room Air Intake Visit Reasons: EP ??kidney Stone/pain Intake Note: pt is here today for kidney stones started 1 week ago Patient Tobacco Use Status: Former Tobacco user Allergies No Known Allergies Allergy (Verified 01/03/24 11:54) Do you need a note to return to daycare/school/sports/work: No HPI HPI Comments History of Present Illness Details 53 y/o male patient who presents to walk in clinic with c/o right kidney stone. Pt is being managed by Urology - and has long h/o Kidney stones. Today Pt reports severe pain, and believes that he passed a stone. Pain urination. Pt tried to see his Urologist today but the soonest appointment is until 02/2024. Pt was advised to to go U/C or ED for pain management. Pt does not want to go to ED, because of a long waiting time. Pt asking for right Kidney Xray today. [facility] Medical History COPD (chronic obstructive pulmonary disease) Diabetes History of kidney cancer Methadone dependence Surgical History History of kidney surgery Hx of appendectomy Previous back surgery Social History Patient Tobacco Use Status: Former Tobacco user Tobacco use type: Cigarette e-Cigarette/Vaping Use: Never Used Current occupational status: disabled Cognitive needs: No Hearing needs: No Vision needs: No Review of Systems Const All systems reviewed & are unremarkable except as noted in HPI and below Physical Exam Vital Signs: Last Vital Signs Temp 97.4 F 01/03/24 11:48 Pulse 111 H 01/03/24 11:48 BP 160/80 H 01/03/24 11:48 Pulse Ox 95 01/03/24 11:48 Oxygen Delivery Method Room Air 01/03/24 11:48 BMI result Body Mass Index 23.1 Const General: no acute distress and poor hygiene; No comfortable Orientation/consciousness: patient oriented x3 General: Yes CVA tenderness (right sided CVA) Back/Spine/Pelvis Back: CVA tenderness (right sided CVA), No erythema, No warmth and back tenderness Thoracic/Lumbar Spine: thoraco-lumbar ROM normal Neuro General: patient oriented x3, gait normal and moves all extremities Psych Speech and movement: Normal speech and movement present Assessment & Plan Assessment & Plan (1) Right renal stone: Code(s): N20.0 - Calculus of kidney Plan: - Informed Pt that I will order the Xray, but he will still need to go to ED for acute pain management. - Pt asking if we could fax the Xray report to his Urologist. Orders: Orders XR KUB Today N20.0 - Calculus of kidney Coding Level of Care Code Est Pt Level 3 (12653) Diagnoses Right renal stone N20.0 Time Spent (min) 15
[2024-01-03 11:48] VITALS: BP 160/80; PULSE 111; TEMP 36.3; O2SAT 95; BMI 23.1
== END 2024-01-03 14:51 | disposition home or self-care (01) ==
PROVIDERS: PCP Nurse Practitioner Family; Visit Provider Nurse Practitioner Family
DX: N20.0 Calculus of kidney (principal)
CPT/HCPCS: 99213

== ENCOUNTER 2024-01-03 12:23 | Outpatient (REF) | payer OTHER, SELFPAY ==
--- NOTE | ~2024-01-03 | XR_ITS ---
EXAMINATION: XR ABDOMEN KUB CLINICAL INDICATION: Renal calculus. COMPARISON: 12/08/2022. TECHNIQUE: AP view of the abdomen. FINDINGS: Previously seen right double-J ureteral stent is no longer present. Overlying bowel contents limit evaluation for subtle urinary tract stones. There are approximately 1.4 and 1.3 cm right lower pole fragments of the previously seen approximately 2.1 cm right lower pole staghorn calculus. Tiny adjacent calcifications projecting over the right lower pole appear unchanged. No calculus is identified on the right. There is no evidence of intestinal obstruction or free air. No soft tissue mass or organomegaly is noted. Status post laminectomy with bilateral transpedicular screws, rods, disc spacing device at L5-S1. No evidence of hardware fracture or loosening. Surgical clips project over the right hemiabdomen vertically roughly from the levels L1-L4. XR/XR KUB IMPRESSION: Findings as above.
== END 2024-01-03 12:24 | disposition home or self-care (01) ==
LOC: HO.HMGCX 12:23
PROVIDERS: PCP Nurse Practitioner Family; Visit Provider Nurse Practitioner Family
DX: N20.0 Calculus of kidney (principal)
CPT/HCPCS: 74018

== ENCOUNTER 2024-01-15 14:25 | Outpatient (AMB) | payer OTHER, SELFPAY ==
--- NOTE | 2024-01-15 14:27 | A.OFFVIS_ITS ---
Intake Intake Visit Reasons: KUB results/discuss treatment plan Intake Note: Patient is Present for Follow Up Urology Medication:None Antibiotic Allergies:None Blood Thinners:None Allergies No Known Allergies Allergy (Verified 01/15/24 14:31) Medication List - Last Reconciled 01/15/24 by Franki Huggins MD [albuterol ] albuterol sulfate 2.5 mg (3 mL) inhalation Q4-6H PRN blood sugar diagnostic (FreeStyle Lite Strips) As directed check blood sugar twice a day and prn blood-glucose meter (FreeStyle Lite Meter kit) As directed clindamycin HCl 300 mg PO Q8H 7 days flash glucose sensor (FreeStyle Clint 2 Sensor kit) As directed lancets (FreeStyle Lancets) As directed check blood sugar twice a day and prn as needed levofloxacin 500 mg PO DAILY 7 days metformin take two in the am and one with your meal in the pm orally; methadone 24 mg PO DAILY omeprazole 40 mg PO DAILY phenazopyridine 100 mg PO Q8H 14 days HPI HPI Comments History of Present Illness Details Chirag is a pleasant male. He is a patient of . He is seen for the following urologic conditions - nephrolithiasis - renal cell carcinoma Has passed large fragment KUB shows 2 small fragments remaining This is 75% less than original staghorn Recommend ureteroscopy with laser lithotripsy May have current UTI with pyelonephritis Nephrolithiasis Prior partial nephrectomy open [address] Dr. Amor Appears to have developed lower pole stone Prior ESWL Concomitant diabetes with metformin Imaging - 12/28 CT Right dominant calculus has a somewhat staghorn appearance measuring up to 2.5 cm - 01/29 x-ray with right lower pole kidne y stone 1.2 cm Intervention - 02/27 ureteroscopy with laser lithotrip sy right side - 03/30 ESWL right with stent removal Recommendation for ESWL of remnant fragments PFSH Medical History COPD (chronic obstructive pulmonary disease) Methadone dependence History of kidney cancer Diabetes Surgical History History of kidney surgery Previous back surgery Hx of appendectomy Social History Patient Tobacco Use Status: Former Tobacco user Tobacco use type: Cigarette e-Cigarette/Vaping Use: Never Used Current occupational status: disabled Cognitive needs: No Hearing needs: No Vision needs: No Review of Systems Const Denies chills and Denies fever(s) Card Reports no additional complaints and Denies syncope Resp Denies cough GI Denies abdominal pain and Denies heartburn Reports as per HPI and Denies change in libido Neuro Denies syncope Psych Denies change in libido Endo Denies change in libido Physical Exam Const General: cooperative, healthy appearing, comfortable and no acute distress Orientation/consciousness: patient oriented x3 HEENT Face and sinus: Yes normal facial exam Mouth: moist mucous membranes Neck Neck: Yes normal visual inspection, Yes full ROM and Yes trachea midline Chest Chest palpation & inspection: normal inspection of the chest Resp Effort & Inspection: normal respiratory effort, able to speak in complete sentences and no respiratory distress GI Inspection: Yes normal to inspection Back/Spine/Pelvis Cervical Spine: normal cervical lordosis Thoracic/Lumbar Spine: thoracic and lumbar spine normal to inspection Skin General skin exam: no rashes or lesions noted Neuro General: patient oriented x3, gait normal, tone normal and moves all extremities Extrem General: Yes normal to inspection and Yes capillary refill normal Assessment & Plan Assessment & Plan (1) Staghorn calculus: Code(s): N20.0 - Calculus of kidney Plan Initiate Levaquin with Pyridium Ureteroscopy We discussed the nature of the decision and reasonable alternatives for performing ureteroscopy. Options such as medical therapy were discussed. Interventions include chemical dissolution, ESWL, ureteroscopy with laser lithotripsy and stent placement, PCNL. The relative uncertainties and benefits related to each alternate procedure were adequately discussed. General surgical risks including, but not limited to - pain, bleeding, infection, myocardial infarction, pulmonary embolus, deep vein thrombosis and cerebrovascular accident which may result in further hospitalization were discussed. Full disclosure of the procedure as well as all major risks, benefits and complications were discussed including but not limited to damage to the urethra, bladder and kidney infection, damage to the ureter, stent migration or malposition, scarring to the renal pelvis, remnant stone fragments, subsequent stone passage with need for secondary procedures. The overall secondary procedure rate is approximately 10-15%. The overall clearance rate is approximately 90-95%. Success of the procedure in the short-term does not necessarily guarantee that long-term success will be maintained. Suitable follow up will need to be maintained. The patient showed understanding of discussion and wishes to proceed with - cystoscopy, retrograde, ureteroscopy, possible lithotripsy/stone basketing and stent on the right flexible side Medications: New levofloxacin 500 mg PO DAILY 7 days 7 tabs 0RF N12 - Tubulo-interstitial nephritis, not specified as acute or chronic, N39.0 - Urinary tract infection, site not specified phenazopyridine 100 mg PO Q8H 14 days 42 tabs 0RF M54.50 - Low back pain, unspecified, N12 - Tubulo-interstitial nephritis, not specified as acute or chronic, N30.10 - Interstitial cystitis (chronic) without hematuria, R31.9 - Hematuria, unspecified Patient Instructions: Imaging studies, laboratory and physical exam results were discussed and reviewed in detail. No major barriers to patient understanding were identified. An opportunity to ask questions regarding the treatment plan was provided. All questions were answered. The patient expressed understanding and agreement with the above treatment plan. The patient is aware they should contact our office by phone for worsening of their current condition or the appearance of new urologic symptoms. Compliance is encouraged with any medications and followup testing that is ordered. It is a privilege to participate in the urologic care of your patient. If you have any questions or concerns regarding treatment for the above conditions, or other urologic issues, please do not hesitate to contact me. The office telephone contact is [phone]. This note is constructed using voice recognition software. While every effort has been made to ensure accuracy colored liquid plastic applier errors may have been included. Yours sincerely, Dr Franki Huggins MD, [facility] - Urology Providers of Expert, Compassionate Care for the Genitourinary System Coding Level of Care Code Est Pt Level 4 (29407) Diagnoses Staghorn calculus N20.0
== END 2024-01-15 15:20 | disposition home or self-care (01) ==
PROVIDERS: PCP Nurse Practitioner Family; Visit Provider Urology
DX: N20.0 Calculus of kidney (principal)
CPT/HCPCS: 99214

== ENCOUNTER 2024-01-15 14:25 | Outpatient (REF) | payer OTHER, SELFPAY ==
[2024-01-27 23:35] LABS: Stone Source KIDNEY STONE
== END 2024-01-15 14:26 | disposition home or self-care (01) ==
LOC: HO.LAB 14:25
PROVIDERS: PCP Nurse Practitioner Family; Visit Provider Urology
DX: N20.0 Calculus of kidney (principal); N12 Tubulo-interstitial nephritis, not specified as acute or chronic; M54.50 Low back pain, unspecified; N30.10 Interstitial cystitis (chronic) without hematuria; R31.9 Hematuria, unspecified; Z79.899 Other long term (current) drug therapy; Z85.528 Personal history of other malignant neoplasm of kidney
CPT/HCPCS: 82365; 88300; 99212

== ENCOUNTER 2024-01-16 10:12 | Outpatient (AMB) | payer OTHER, SELFPAY ==
[2024-01-16 10:22] VITALS: BP 166/90; PULSE 103; RESP 13; O2SAT 96; BMI 22.9
--- NOTE | 2024-01-16 10:22 | A.OFFPC_ITS ---
Vital Signs 01/16/24 10:22 Height 6 ft 2 in Weight 178 lb BMI 22.9 BP 166/90 H Blood Pressure Location Lt brachial Position Sitting Respiration 13 Pulse 103 H Pulse Source Pulse Oximeter Pulse Oximetry (%) 96 Oxygen Delivery Method Room Air Intake Visit Reasons: tooth pain Intake Note: Patient reports he is here for tooth pain along with a bunch of other stuff. This adjusto writer operator informed patient he was on the schedule today for tooth pain. Patient reports the medication the provider gave last time was garbage and didn't work. Cigar Packer And Picker Required: No Accompanied by: Self / Same As Patient Allergies No Known Allergies Allergy (Verified 01/16/24 10:33) Medication List - Last Reconciled 01/16/24 by Eve Connolly, DARA-BC [albuterol ] albuterol sulfate 2.5 mg (3 mL) inhalation Q4-6H PRN blood sugar diagnostic (FreeStyle Lite Strips) As directed check blood sugar twice a day and prn blood-glucose meter (FreeStyle Lite Meter kit) As directed flash glucose sensor (FreeStyle Clint 2 Sensor kit) As directed lancets (FreeStyle Lancets) As directed check blood sugar twice a day and prn as needed metformin take two in the am and one with your meal in the pm orally; methadone 24 mg PO DAILY omeprazole 40 mg PO DAILY phenazopyridine 100 mg PO Q8H 14 days Tobacco use date assessed: 12/19/23 Dental Screening Dental Screen Date: 12/19/23 HPI HPI Comments History of Present Illness Details Here today for Same Day visit: Needs dental work Reports needs clearance to under go anesthesia Does not have any paperwork for this; does not have this here w/ him today and odes not even know the name of the dental group; reports its in [place] and he can get me the paperwork and info and bring it in c/o recurrent renal stones and chronic pain; ff'd by Urology. Needs more procedures done. Reports new RX sent in but has not picked up or started yet. [facility] Medical History COPD (chronic obstructive pulmonary disease) Methadone dependence History of kidney cancer Diabetes Surgical History History of kidney surgery Previous back surgery Hx of appendectomy Family History Other Mental health disorder Substance use disorder Social History Household Members: Other Housing: Apartment 75 years or older and lives alone: No Alcohol intake: never Patient Tobacco Use Status: Former Tobacco user Tobacco use type: Cigarette e-Cigarette/Vaping Use: Never Used Use of substances other than those prescribed or required for medical reasons: Yes Substance Use Type: Marijuana Have you been hit, kicked, punched, or otherwise hurt by someone within the past year? If so, by whom?: No Do you feel safe in your current relationship?: No Current Relationship Is there a partner from a previous relationship who is making you feel unsafe now?: No Are you made to feel afraid or neglected: No service: No Current occupational status: disabled Current occupational exposures/hazards: No Cognitive needs: No Hearing needs: No Vision needs: No Questionnaire Thrive Questionnaire Date Thrive assessed: 12/19/23 KI-7 AMB Questionnaire KI-7 Date KI - 7 assessed: 01/08/23 Source: Developed by Drs. Karl Clarke, Melinda Ellis, Tray Patel and colleagues, with an educational zenaida from [employer]. ACT Questionnaire In the past 4 weeks, how much of the time did your asthma keep you from getting as much done at work, school or at home?: None of the time During the past 4 weeks, how often have you had shortness of breath?: Not at all During the past 4 weeks, how often did your asthma symptoms wake you up at night or earlier than usual in the morning?: Not at all During the past 4 weeks, how often have you had to use your rescue inhaler or nebulizer medication?: Not at all How would you rate your asthma control during the past 4 weeks?: Completely controlled ACT Interpretation: Negative Score: 25 Review of Systems Const All systems reviewed & are unremarkable except as noted in HPI and below Physical exam (Primary Care) Vital Signs: Last Vital Signs Pulse 103 H 01/16/24 10:22 Resp 13 01/16/24 10:22 BP 166/90 H 01/16/24 10:22 Pulse Ox 96 04/10/24 10:22 Oxygen Delivery Method Room Air 01/16/24 10:22 BMI result Body Mass Index 22.9 Tobacco/Smoking Status: Tobacco use Status Tobacco use date assessed 12/19/23 01/16/24 10:26 Patient Tobacco Use Status Former Tobacco user 01/16/24 10:27 Tobacco use type Cigarette 01/16/24 10:27 e-Cigarette/Vaping Use Never Used 01/16/24 10:27 Thrive Assessment: Date of Thrive Assessment Date Thrive assessed 12/19/23 01/16/24 10:26 Const Other: awake alert MMM missing, carious, broken teeth throughout Assessment and Plan Assessment & Plan (1) Dental caries: Comment: States he will get me the info from the dentist so that i can get pre-op paperwork for clearance He states he can get me the info by the end of this week I told him i would review once i have rec'd and reach out to him to f/u as needed otherwise advised to cont f/u with care team Code(s): K02.9 - Dental caries, unspecified Plan: This note is constructed using voice recognition software. While every effort has been made to ensure accuracy in firefighting equipment specialist, still errors may have been included Sometimes, these errors may affect the content or meaning of the given sentence . Total time spent caring for the patient today was 30 minutes. This includes time spent before the visit reviewing the chart, time spent during the visit, and time spent after the visit on documentation Coding Level of Care Code Est Pt Level 4 (27919) Diagnoses Dental caries K02.9
== END 2024-01-16 12:09 | disposition home or self-care (01) ==
PROVIDERS: PCP Hospitalist; Visit Provider Nurse Practitioner Family
DX: K02.9 Dental caries, unspecified (principal)
CPT/HCPCS: 99214

== ENCOUNTER 2024-02-19 11:27 | Outpatient (AMB) | payer OTHER, SELFPAY ==
--- NOTE | 2024-02-19 11:30 | MHC.PC.OV ---
Vital Signs 02/19/24 11:31 02/19/24 12:25 Height 6 ft 2 in Weight 178 lb 2 oz BMI 22.9 BP 205/107 H 190/92 H Blood Pressure Location Lt brachial Lt brachial Position Sitting Sitting Respiration 16 Pulse 110 H Pulse Source Palpation Pulse Oximetry (%) 97 Oxygen Delivery Method Room Air Intake Visit Reasons: Trans. from [facility] F/U Intake Note: Patient is here as a transfer patient from [facility], high blood pressure, maybe nervous today. Patient would like to talk about mot taking Metformin. Allergies No Known Allergies Allergy (Verified 02/19/24 11:35) Medication List - Last Reconciled 02/19/24 by Irving Omalley MD [albuterol ] albuterol sulfate 2.5 mg (3 mL) inhalation Q4-6H PRN blood sugar diagnostic (FreeStyle Lite Strips) As directed check blood sugar twice a day and prn blood-glucose meter (FreeStyle Lite Meter kit) As directed flash glucose sensor (FreeStyle Clint 2 Sensor kit) As directed lancets (FreeStyle Lancets) As directed check blood sugar twice a day and prn as needed methadone 24 mg PO DAILY omeprazole 40 mg PO DAILY oxycodone-acetaminophen 5-325 mg (Percocet) 1 tab PO Q8H PRN 3 days phenazopyridine 100 mg PO Q8H 14 days Tobacco use date assessed: 02/19/24 Dental Screening Dental Screen Date: 02/19/24 Did you have a dental visit in the last 12 months?: Yes Did you have a dental problem in the last 6 months where you did not have access to dental care?: No HPI Trans. from [facility] F/U HPI Details Transfer of Care Prior PCP:? Last office visit/CPE: Acute issue(s): Hypertension Diabetes -Had been unable to tolerate metformin and pt states he is also concerned about it causing cancer. PMHx: Diabetes, Hypertension, opiod use disorder, Kidney cancer R kidney SurgHx: R partial nephrectomy, 2003 FHx: SocHx: Quit 2014. EtOH quit 2014. No drugs. DM - Cont monitor Staghorn Kidney [facility] Medical History (Updated 02/19/24 @ 12:53 by Irving Omalley MD) COPD (chronic obstructive pulmonary disease) Methadone dependence History of kidney cancer Diabetes Surgical History History of kidney surgery Previous back surgery Hx of appendectomy Family History Other Mental health disorder Substance use disorder Social History Household Members: Other Housing: Apartment 75 years or older and lives alone: No Alcohol intake: never Patient Tobacco Use Status: Former Tobacco user Tobacco use type: Cigarette e-Cigarette/Vaping Use: Never Used Substance Use Type: Marijuana service: No Current occupational status: disabled Current occupational exposures/hazards: No Cognitive needs: No Hearing needs: No Vision needs: No Questionnaire PHQ-9 Over the last 2 weeks, how often have you been bothered by any of the following problems? 1. Little interest or pleasure in doing things: nearly every day 2. Feeling down, depressed, or hopeless: nearly every day 3. Trouble falling or staying asleep, or sleeping too much: nearly every day 4. Feeling tired or having little energy: nearly every day 5. Poor appetite or overeating: nearly every day 6. Feeling bad about yourself - or that you are a failure or have let yourself or your family down: nearly every day 7. Trouble concentrating on things, such as reading the newspaper or watching television: nearly every day 8. Moving or speaking so slowly that other people could have noticed. Or the opposite - being so fidgety or restless that you have been moving around a lot more than usual: nearly every day 9. Thoughts that you would be better off or of hurting yourself in some way: nearly every day Total score: 27 Depression Screening Interpretation: Positive Depression Screening Done: Yes Source: Developed by Drs. Karl Clarke, Melinda Ellis, Tray Patel and colleagues, with an educational zenaida from [employer]. Thrive Questionnaire Date Thrive assessed: 02/19/24 I am a: Patient What is your living situation today?: I have a steady place to live Within the past 12 months, did the food you bought not last and you didn't have the money to get more?: Never true Within the past 12 months, did you worry whether your food would run out before you got money to buy more?: Never true Do you have trouble paying for medicines?: No Do you have trouble getting transportation to medical appointments?: No Do you have trouble paying your heating and electricity bill?: No Do you have trouble taking care of your child, family member or friend?: No Do you have trouble with day-to-day activities such as bathing, preparing meals, shopping, managing finances, etc.?: No Are you currently unemployed and looking for a job?: No Are you interested in more education?: No THRIVE Score: 0 AUDIT C Alcohol Use Questionnaire (AUDIT-C) 1. How often do you have a drink containing alcohol?: Never 3. How often do you have six or more drinks on one occasion?: Never Total Score: 0 KI-7 AMB Questionnaire KI-7 Date KI - 7 assessed: 02/19/24 Feeling nervous, anxious, or on edge: 3 = Nearly every day Not being able to stop or control worryin = Nearly every day Worrying too much about different things: 3 = Nearly every day Trouble relaxin = Nearly every day Being so restless that it is hard to sit still: 3 = Nearly every day Becoming easily annoyed or irritable: 3 = Nearly every day Feeling afraid as if something awful might happen: 3 = Nearly every day Total KI-7 score (0-4 normal; 5-9 mild; 10-14 moderate; 15-21 severe): 21 Source: Developed by Drs. Karl Clarke, Melinda Ellis, Tray Patel and colleagues, with an educational zenaida from [employer]. Review of Systems Const Denies chills, Denies fatigue, Denies fever(s), Denies headache(s) and Denies weakness ENT Denies dizziness and Denies headache(s) Card Denies chest pain, Denies lightheadedness, Denies dyspnea and Denies other (Palpitations) Resp Denies cough, Denies dyspnea, Denies wheezing and Denies other ( shortness of breath) Musc Denies numbness and Denies tingling Neuro Denies dizziness, Denies headache(s), Denies numbness, Denies tingling, Denies paresthesias and Denies weakness Psych Denies anxiety and Denies depression Endo Denies fatigue Aller/Immun Denies wheezing Physical exam (Primary Care) Vital Signs: Last Vital Signs BP 205/107 H 02/19/24 11:31 BMI result Body Mass Index 22.9 Tobacco/Smoking Status: Tobacco use Status Tobacco use date assessed 02/19/24 02/19/24 11:37 Patient Tobacco Use Status Former Tobacco user 02/19/24 11:31 Tobacco use type Cigarette 02/19/24 11:31 e-Cigarette/Vaping Use Never Used 02/19/24 11:31 PHQ-9: PHQ-9 Score PHQ-9: Total score 27 02/19/24 12:02 Depression Screening Interpretation: Positive Thrive Assessment: Date of Thrive Assessment Date Thrive assessed 02/19/24 02/19/24 11:47 Const General: no acute distress and well developed Nutritional Appearance: well nourished Orientation/consciousness: patient oriented x3 HENMT Head: Yes normocephalic and Yes atraumatic Eyes General: appearance normal, both eyes and all related structures Pupils: Equal, round and reactive pupils present EOM: EOMs intact bilaterally Resp Effort & Inspection: normal respiratory effort Auscultation: clear to auscultation bilaterally Cardio Rate: regular rate Rhythm: regular rhythm Heart sounds: S1 normal heart sound present, S2 normal heart sound present, no gallops, no murmurs and no rubs Neuro General: patient oriented x3 and gait normal Cranial nerves: Yes Equal, round and reactive pupils present Psych Affect: normal affect Assessment and Plan Assessment & Plan (1) Hypertension: Code(s): I10 - Essential (primary) hypertension Plan: Hypertensive?urgency?without?symptoms?of?end-organ?damage. Blood?pressures?have?been?very?high?and?he?does?not?have?any?medications?to?control?this. EKG?shows: ?Sinus?tachycardia,?105?beats?per?minute,?normal?axis,?left?atrial?enlargement,?no?ST-T-wave?changes. Blood?pressure?improved?somewhat?with?clonidine _ Start?losartan. Will?also?give?him?clonidine?to?help?with?anxiety?and?may?also?help?with?any?withdrawals?as?he?says?he?is?hoping?to?get?off?of?methadone. (2) Diabetes: Code(s): E11.9 - Type 2 diabetes mellitus without complications Plan: He?blood?sugars?are?high?and?he?has?history?of?diabetes. He?has?not?on?any?medications?for?this Start?Lantus?and?a?small?dose?of?glipizide.??We?will?follow-up (3) History of kidney cancer: Code(s): Z85.528 - Personal history of other malignant neoplasm of kidney Plan: History?of?renal?cancer?and?partial?nephrectomy?in?2003 Stable Follow-up?with?urology?as?recommended (4) Staghorn calculus: Code(s): N20.0 - Calculus of kidney Plan: Recurrent?staghorn?calculi Increase?hydration Follow-up?with?urology?as?recommended (5) Methadone dependence: Code(s): F11.20 - Opioid dependence, uncomplicated Plan: He?says?he?wants?to?wean?this?down?and?I?have?referred?him?to?the?[facility] Also?gave?him?a?script?for?clonidine?to?help?with?both?blood?pressure?and?withdrawal?symptoms (6) Opioid use disorder: Code(s): F11.90 - Opioid use, unspecified, uncomplicated Plan: As?above (7) Anxiety: Code(s): F41.9 - Anxiety disorder, unspecified Plan: Significant?anxiety?and?complaints?of?difficulty?sleeping. Clonidine?may?help?with?this Will?follow-up?at?an?upcoming?appointment?as he?is?not?on?any?first-line?medications?for?anxiety. (8) Laboratory exam ordered as part of routine general medical examination: Code(s): Z00.00 - Encounter for general adult medical examination without abnormal findings Plan: Labs Orders: Orders Comprehensive [place]. Panel Fast Today I10 - Essential (primary) hypertension, Z00.00 - Encounter for general adult medical examination without abnormal findings Lipid Panel Today Z00.00 - Encounter for general adult medical examination without abnormal findings Complete Blood Count Auto Diff Today Z00.00 - Encounter for general adult medical examination without abnormal findings Prostate Specific Antigen Scr Today Z12.5 - Encounter for screening for malignant neoplasm of prostate AMB EKG-In Office Today I10 - Essential (primary) hypertension Microalbumin, Random (w Creat) Today I10 - Essential (primary) hypertension TSH reflex Free T4 Today I10 - Essential (primary) hypertension, Z00.00 - Encounter for general adult medical examination without abnormal findings UA and rflx microscopic Today I10 - Essential (primary) hypertension, Z00.00 - Encounter for general adult medical examination without abnormal findings Referrals Nurse Navigator Referral E11.9 - Type 2 diabetes mellitus without complications Addiction Medicine Referral F11.90 - Opioid use, unspecified, uncomplicated Medications: New insulin glargine (Lantus Solostar U-100 Insulin) 10 units (0.1 mL) subcut QPM 30 days 3 mL 3RF E11.9 - Type 2 diabetes mellitus without complications glipizide 2.5 mg PO DAILY 90 days 90 tabs 1RF E11.9 - Type 2 diabetes mellitus without complications blood pressure monitor Automatic, Digital. Dx: I10. Daily As directed, 999 days/lifetime 1 ea 0RF I10 - Essential (primary) hypertension losartan 50 mg PO DAILY 90 days 90 tabs 2RF clonidine HCl 0.1 mg PO TID 30 days 90 tabs 1RF pen needle, diabetic (BD Sabrina 2nd Gen Pen Needle) To treat Blood sugar daily As directed, 90 days 100 ea 0RF E11.9 - Type 2 diabetes mellitus without complications meloxicam 15 mg PO DAILY 30 days 30 tabs 2RF E11.9 - Type 2 diabetes mellitus without complications Coding Level of Care Code Est Pt Level 3 (79276) Est Pt Prev Care 40-64y(20730) Diagnoses Hypertension I10 Diabetes E11.9 History of kidney cancer Z85.528 Staghorn calculus N20.0 Methadone dependence F11.20 Opioid use disorder F11.90 Anxiety F41.9 Laboratory exam ordered as part of routine general medical examination Z00.00
[2024-02-19 11:31] VITALS: BP 205/107; BMI 22.9
[2024-02-19 12:25] VITALS: BP 190/92; PULSE 110; RESP 16; O2SAT 97
== END 2024-02-19 16:12 | disposition home or self-care (01) ==
PROVIDERS: PCP Hospitalist; Visit Provider Family Medicine
DX: Z00.00 Encounter for general adult medical examination without abnormal findings (principal); E11.9 Type 2 diabetes mellitus without complications; F11.20 Opioid dependence, uncomplicated; Z85.528 Personal history of other malignant neoplasm of kidney; I10 Essential (primary) hypertension; N20.0 Calculus of kidney; F11.90 Opioid use, unspecified, uncomplicated; F41.9 Anxiety disorder, unspecified
CPT/HCPCS: 99213; 99396

== ENCOUNTER 2024-03-11 10:29 | Outpatient (AMB) | payer OTHER, SELFPAY ==
[2024-03-11 10:31] VITALS: BP 150/80; PULSE 93; O2SAT 96; BMI 22.3
--- NOTE | 2024-03-11 10:31 | MHC.PC.OV ---
Vital Signs 03/11/24 10:31 Height 6 ft 2 in Weight 174 lb BMI 22.3 BP 150/80 H Blood Pressure Location Lt brachial Position Sitting Pulse 93 Pulse Source Pulse Oximeter Pulse Oximetry (%) 96 Oxygen Delivery Method Room Air Intake Visit Reasons: F/U hypertension diabetes Intake Note: Patient is here for follow up on hypertension and diabetes. Allergies No Known Allergies Allergy (Verified 03/11/24 10:36) Tobacco use date assessed: 03/11/24 Dental Screening Dental Screen Date: 02/19/24 HPI F/U hypertension diabetes HPI Details 53 y/o male presents to f/u hypertension, diabetes. Blood pressure today 150/80. He is on losartan 50mg daily. A1c today 03/11/24 is 6.5%. He notes he is unsure if he is taking his diabetes medication regimen. HPI Comments History of Present Illness Details Documentation assistance for Irving Omalley MD, was provided by Jose Alejandro Gamez, [employer] Specialist on 03/11/2024 at 10:55 AM EST. I, Dr. Omalley, have read, observed, and verified documentation. [facility] Medical History (Updated 03/11/24 @ 11:23 by Jose Alejandro Gamez) COPD (chronic obstructive pulmonary disease) Methadone dependence History of kidney cancer Diabetes Surgical History History of kidney surgery Previous back surgery Hx of appendectomy Family History Other Mental health disorder Substance use disorder Social History Household Members: Other Housing: Apartment 75 years or older and lives alone: No Alcohol intake: never Patient Tobacco Use Status: Former Tobacco user Tobacco use type: Cigarette e-Cigarette/Vaping Use: Never Used Substance Use Type: Marijuana service: No Current occupational status: disabled Current occupational exposures/hazards: No Cognitive needs: No Hearing needs: No Vision needs: No Questionnaire Thrive Questionnaire Date Thrive assessed: 02/19/24 KI-7 AMB Questionnaire KI-7 Date KI - 7 assessed: 02/19/24 Source: Developed by Drs. Karl Clarke, Melinda B.W. Tray Ellis and colleagues, with an educational zenaida from [employer]. Review of Systems Const Denies chills, Denies fatigue, Denies fever(s), Denies headache(s) and Denies weakness ENT Denies dizziness and Denies headache(s) Card Denies dyspnea Resp Denies cough, Denies dyspnea, Denies wheezing and Denies other (shortness of breath) Musc Denies numbness and Denies tingling Neuro Denies dizziness, Denies headache(s), Denies numbness, Denies tingling and Denies weakness Psych Denies anxiety and Denies depression Endo Denies fatigue Aller/Immun Denies wheezing Physical exam (Primary Care) Vital Signs: Last Vital Signs Pulse 93 03/11/24 10:31 BP 150/80 H 03/11/24 10:31 Pulse Ox 96 03/11/24 10:31 Oxygen Delivery Method Room Air 03/11/24 10:31 BMI result Body Mass Index 22.3 Tobacco/Smoking Status: Tobacco use Status Tobacco use date assessed 03/11/24 03/11/24 10:40 Patient Tobacco Use Status Former Tobacco user 03/11/24 10:40 Tobacco use type Cigarette 03/11/24 10:40 e-Cigarette/Vaping Use Never Used 03/11/24 10:40 Thrive Assessment: Date of Thrive Assessment Date Thrive assessed 02/19/24 03/11/24 10:40 Const General: well developed; No acute distress Nutritional Appearance: well nourished Orientation/consciousness: patient oriented x3 HENMT Head: Yes normocephalic and Yes atraumatic Eyes General: appearance normal, both eyes and all related structures Pupils: Equal, round and reactive pupils present EOM: EOMs intact bilaterally Resp Effort & Inspection: normal respiratory effort Auscultation: clear to auscultation bilaterally Cardio Rate: regular rate Rhythm: regular rhythm Heart sounds: S1 normal heart sound present, S2 normal heart sound present, no gallops, no murmurs and no rubs Neuro General: patient oriented x3 and gait normal Cranial nerves: Yes Equal, round and reactive pupils present Psych Affect: normal affect Results AMB Hemoglobin A1c AMB Hemoglobin A1c 6.5 % Last Edit by Angela Hu CMA on 03/11/24 11:01 Assessment and Plan Assessment & Plan (1) Hypertension: Code(s): I10 - Essential (primary) hypertension (2) Diabetes: Code(s): E11.9 - Type 2 diabetes mellitus without complications Plan: A1c?6.5% He?would?like?to?continue?with?just?Lantus?as?he?has?not?picked?up?glipizide And?he?will?use 5?units?daily Will?follow-up?at?next?visit Encouraged?diabetic?diet?low?in?sugars?and?starches (3) Methadone dependence: Code(s): F11.20 - Opioid dependence, uncomplicated Plan: Referred?to?comprehensive?Care?Clinic Patient?has?opioid?use?disorder?and?now?wants?to?discontinue?methadone Still?has?chronic?pain?however-see?below (4) Anxiety: Code(s): F41.9 - Anxiety disorder, unspecified Plan: Significant?anxiety?regarding?health?as?well?as?other?issues Start?duloxetine?which?may?also?help?with?pain (5) Chronic pain: Code(s): G89.29 - Other chronic pain Plan: Chronic?pain?and?I?am?starting?duloxetine We?can?follow-up?on?this?at?his?next?visit (6) COPD (chronic obstructive pulmonary disease): Code(s): J44.9 - Chronic obstructive pulmonary disease, unspecified Plan: Sending?a?script?for?a?new?nebulizer?and?albuterol Will?discuss?smoking?at?his?next?visit Orders: Orders AMB Hemoglobin A1c Today Z13.9 - Encounter for screening, unspecified Referrals Addiction Medicine Referral F11.20 - Opioid dependence, uncomplicated, F11.90 - Opioid use, unspecified, uncomplicated Medications: New duloxetine 20 mg PO BID 30 days 60 caps 2RF nebulizers (AeroEclipse II Nebulizer) As directed, 999 days 1 ea 0RF J44.9 - Chronic obstructive pulmonary disease, unspecified albuterol sulfate 2.5 mg (3 mL) inhalation Q6H 30 days 360 mL 2RF Changed From losartan 50 mg PO DAILY 90 days 90 tabs 2RF To losartan 100 mg PO DAILY 90 days 90 tabs 2RF From insulin glargine (Lantus Solostar U-100 Insulin) 10 units (0.1 mL) subcut QPM 30 days 3 mL 3RF E11.9 - Type 2 diabetes mellitus without complications To insulin glargine (Lantus Solostar U-100 Insulin) 5 units (0.05 mL) subcut QPM 30 days 1.5 mL 3RF E11.9 - Type 2 diabetes mellitus without complications Discontinued sulfamethoxazole-trimethoprim 800-160 mg (Bactrim DS) Discontinued Reason: Patient Completed Course 1 tab PO BID 5 days 10 tabs 0RF N39.0 - Urinary tract infection, site not specified phenazopyridine Discontinued Reason: Patient no longer taking 100 mg PO Q8H 14 days 42 tabs 0RF M54.50 - Low back pain, unspecified, N12 - Tubulo-interstitial nephritis, not specified as acute or chronic, N30.10 - Interstitial cystitis (chronic) without hematuria, R31.9 - Hematuria, unspecified Coding Level of Care Code Est Pt Level 4 (44144) Diagnoses Hypertension I10 Diabetes E11.9 Methadone dependence F11.20 Anxiety F41.9 Chronic pain G89.29 COPD (chronic obstructive pulmonary disease) J44.9
== END 2024-03-11 11:44 | disposition home or self-care (01) ==
PROVIDERS: PCP Nurse Practitioner Family; Visit Provider Family Medicine
DX: I10 Essential (primary) hypertension (principal); E11.9 Type 2 diabetes mellitus without complications; F11.20 Opioid dependence, uncomplicated; J44.9 Chronic obstructive pulmonary disease, unspecified; F41.9 Anxiety disorder, unspecified; G89.29 Other chronic pain
CPT/HCPCS: 83036; 99214

== ENCOUNTER 2024-03-31 06:06 | Day surgery (SDC) | payer OTHER, SELFPAY ==
[2024-03-31] VITALS (10 sets, daily range): BP systolic 141–172; BP diastolic 81–107; PULSE 81–105; RESP 16–20; TEMP 36.2–37.2; O2SAT 95–99; BMI 21.6
--- NOTE | ~2024-03-31 | FL_ITS ---
EXAMINATION: XR FLUOROSCOPY WITH IMAGES CLINICAL INFORMATION: Cysto, uretero, retro, laser, right. COMPARISON: CT of the abdomen and pelvis 02/07/2023. TECHNIQUE: Fluoroscopy Supervised By: Dr. Huggins. Fluoroscopy Time: 47.7 seconds. Cumulative Dose: 10.491 mGy. DAP: 4.5636 Gycm2. Images: 9. FINDINGS: Intraoperative fluoroscopy and spot films were performed during a procedure in the OR. Contrast is seen injected in the right collecting system. A large pelvic stone is seen along with filling defects in the right lower pole calyx, consistent with stones. The distal end of a double-J internally dwelling presumed stent is present. Incidental note made of lumbar spine fixation hardware. Please correlate with Dr. Huggins's report for complete details. FL/FL guidance in OR IMPRESSION: Intraoperative fluoroscopy and spot films were obtained. Please see Dr. Huggins's report for complete details.
[2024-03-31 07:15] LABS: Glucose, Whole Blood 172 mg/dL (60-115)
--- NOTE | 2024-03-31 07:21 | HO.ANESPROP2 ---
[facility] Active Problems Active Problems: All Active Problems COPD (chronic obstructive pulmonary disease) (Acute) Chronic pain (Acute) Anxiety (Acute) Methadone dependence (Acute) Laboratory exam ordered as part of routine general medical examination (Acute) Hypertension (Acute) History of kidney cancer (Acute) Staghorn calculus (Acute) Pyelonephritis (Acute) Right renal stone (Acute) Right flank pain (Acute) Opioid use disorder (Acute) Dental caries (Acute) Disrupted sleep-wake cycle (Acute) Diabetes (Acute) Past Medical History Medical History COPD (chronic obstructive pulmonary disease) Methadone dependence History of kidney cancer Diabetes Family History Family History Other Mental health disorder Substance use disorder Family history of problems with anesthesia: No Surgical History Surgical History History of kidney surgery Previous back surgery Hx of appendectomy History of Problems with Anesthesia: No Social History Social History Household Members: Other Housing: Apartment Alcohol intake: never Patient Tobacco Use Status: Former Tobacco user Tobacco use type: Cigarette e-Cigarette/Vaping Use: Never Used Use of substances other than those prescribed or required for medical reasons: No Substance Use Type: Marijuana Substance Use Type Other:: methadone Are you DNR?: No Advance Directives: No Advance Directives Information Provided: Yes service: No Current occupational status: disabled Current occupational exposures/hazards: No Cognitive needs: No Hearing needs: No Vision needs: No Meds Allergies Allergy/AdvReac Type Severity Reaction Status Date / Time No Known Allergies Allergy Verified 03/11/24 10:36 Home Medications ?Medication ?Instructions ?Recorded ?Confirmed ?Last Taken ?Type omeprazole 40 mg capsule,delayed 40 mg PO DAILY 12/15/22 03/31/24 03/13/23 History release methadone 20 mg PO DAILY 12/21/22 02/19/24 03/13/23 History albuterol 02/12/23 02/19/24 12/12/22 History Exam Height,Weight and Vital Signs: Height 6 ft 2 in Weight 76.204 kg Pertinent Lab Results Pertinent Lab Results: Laboratory Tests 03/31/24 07:11 POC Glucose 172 H Airway Mallampati Class: III TM Dist: >3cm Neck ROM: Full Loose/Missing/Broken Teeth: Yes and Upper Heart: RRR Lungs: CTA Assessment and Plan Assessment Anesthesia Assessment: Anesthesia Plan Discussed and Chart Reviewed Final Anesthetic Review Family History of Problems with Anesthesia: No History of Problems with Anesthesia: No NPO: Yes ASA Class: III Final Preanesthetic Review: Meds/Allgs Chart Reviewed, Consent Obtained/Reviewed and Anes Risks/Benef Reviewed Patient Risk: Intermediate Procedure Risk: Low Anesthetic Plan Anesthetic Plan: GA Disposition: Standard PACU
--- NOTE | 2024-03-31 08:18 | P.HPSUR_ITS ---
Pre-Procedural Eval Section A - 24 Hr Update-Section A only Date of Service: 03/31/24 The patient is an INPATIENT: No Changes since office visit: No Cold of Flu in the past 2 weeks, No New Medical Problems, No Changes in Medication and No Patient answered all questions The patient has been examined within 24 hours of the surgical procedure. The History & Physical has been completed within 30 days and I have reviewed it.: Yes Section B - Complete if H&P > 30 days Chief Complaint: Calculus of kidney Details of Present Illness: Cystoscopy, right retrograde, right ureteroscopy with laser lithotripsy and stent placement Relevant Social History: None Present Medications: see Short Stay Collaborative assessment Medical History: Significant History History of Previous Operations: Relevant previous surgery/procedure and date(s) Allergies: Allergies Allergy/AdvReac Type Severity Reaction Status Date / Time No Known Allergies Allergy Verified 03/11/24 10:36 Review of Systems Sugical H&P ROS: Negative: Constitution, Cardiovascular, Respiratory, Neurological, Psychiatric, Hem-Onc, Allergic/Immunologic, Gastrointestinal, Genitourinary, Musculoskeletal, Integumentary, Endocrine and E yes/Ears/Nose/Throat Exam Surgical H&P Exam: Normal: HEENT, Normal: Heart, Normal: Lungs, Normal: Extremities, Normal: Abdomen, Normal: Skin and Normal: Neurological Plan Diagnosis/Plan: Unchanged (Cystoscopy, right retrograde, right ureteroscopy with laser lithotripsy and stent placed) I have reviewed the history and physical and performed a pertinent physical examination on my patient. No changes have occurred unless specified. Time Spent With Patient Time: Total time managing care of this patient today ____ minutes.
--- NOTE | 2024-03-31 10:45 | P.OP_ITS ---
Operative Note Operative Note Date of Service: 03/31/24 Narrative: PreOperative Diagnosis: Multiple large right renal stones Post Operative Diagnosis: Multiple large right renal stone Procedure: - cystoscopy, right retrograde - right dilatation of ureteric orifice under fluoroscopy - right ureteroscopy, laser lithotripsy, stone basketing - modifier 22 100% longer than typical - right stent placement Surgeon: Dr Franki Huggins Anesthesia: General Indications for procedure: Two large renal stones each measuring 1.5 cm Procedure: After informed consent was verified patient was brought to the operating placed in supine position. Anesthesia was administered per protocol. Patient was placed in modified dorsal lithotomy position and prepped and draped in a sterile fashion. Safety pause time-out and side of surgery confirmed. Antibiotics confirmed. 22 Austrian cystoscope was inserted per urethra. Bladder was normal in its entirety. Both ureteric orifices were in normal position. The right ureteric orifice was cannulated and a retrograde examination was performed. Filling defects seen within right lower pole and right UPJ.. A Sensor guidewire was placed up to the level of the renal pelvis under fluoroscopy. The rigid cystoscope was removed and the inner cannula of suction ureteric access sheath was used under fluoroscopy to dilate the ureteric orifice. The ureteric access sheath was placed and the inner cannula with access wire removed. The disposable digital flexible ureteral scope was placed. Stone encountered at UPJ. Using a combination of hammer and dusting this was broken into small pieces. The stone took approximately 30 minutes. The rest of the renal pelvis isn't examined. In the lower pole there was a large stone that was very hard. Again using combination of hammer and dusting it was broken into small pieces. This took approximately 60 minutes which is 100% longer than typical. Using the suction access sheath fragments were pulled into the opening of the sheath and broken into small pieces which were removed. A 1.9 Austrian ZeroTip basket was used to remove fragments with multiple passes. The renal pelvis was irrigated out with an open-ended catheter. The area was reexamined. More stones removed with the ZeroTip basket. At the completion of the stone procedure a Sensor wire was placed back into the renal pelvis. The rigid cystoscope was backloaded over the wire and advanced into the bladder. An attempt was made to place a 6 Austrian by variable length stent. Due to anatomic variation from prior surgery this was unable to be successfully placed. A 6 Austrian by 26 cm double-J stent was placed into the renal pelvis and bladder under a combination of fluoroscopy and direct visualization. The bladder was emptied. The patient tolerated the procedure well and was extubated in the operating room, and transferred in stable condition to the [facility] very area. Pathology: Stones Drains: Stent as above
[2024-03-31] MEDS: ondansetron HCL 4 MG/2 ML VIAL IVPUSH (10:56)
[2024-03-31] MEDS: fentaNYL citrate/PF 100 MCG/2 ML VIAL 25 MCG IVPUSH ×4 (11:05→11:20)
[2024-03-31] MEDS: Haloperidol Lactate 5 MG/ML VIAL 1 MG IVPUSH (11:10)
[2024-03-31] MEDS: oxyCODONE HCl Immed Release 5 MG TABLET PO (11:14)
[2024-03-31] MEDS: Phenazopyridine HCL 100 MG TABLET PO (11:14)
[2024-04-07 14:48] LABS: Stone Source RIGHT KIDNEY STONE
== END 2024-03-31 12:10 | disposition home or self-care (01) ==
PROVIDERS: PCP Nurse Practitioner Family; Visit Provider Urology
PROC: (CPT 52356; principal; 2024-03-31 08:30)
DX: N20.0 Calculus of kidney (principal); Z85.528 Personal history of other malignant neoplasm of kidney; Z87.442 Personal history of urinary calculi; G89.29 Other chronic pain; I10 Essential (primary) hypertension; J44.9 Chronic obstructive pulmonary disease, unspecified; E11.9 Type 2 diabetes mellitus without complications; Z79.4 Long term (current) use of insulin; Z79.84 Long term (current) use of oral hypoglycemic drugs; Z79.899 Other long term (current) drug therapy; F11.20 Opioid dependence, uncomplicated; Z87.891 Personal history of nicotine dependence; Z98.890 Other specified postprocedural states
CPT/HCPCS: 52356; 82365; 82947; 88300; C1758; C1769; C2617; J0131; J1100; J1630; J1885; J1956; J2250; J2405; J2704; J3010; Q9967

== ENCOUNTER → 2024-03-31 06:06 | Outpatient (BNV) | payer OTHER, SELFPAY | PROVIDERS: PCP Nurse Practitioner Family; Visit Provider Urology | DX: N20.0 Calculus of kidney (principal) | CPT/HCPCS: 52356; 74420 ==

== ENCOUNTER 2024-04-09 10:09 | Outpatient (AMB) | payer OTHER, SELFPAY ==
--- NOTE | 2024-04-09 10:15 | MHC.OFFVIS ---
Intake Visit Reasons: stent removal Intake Note: Patient is Present for Cystoscopy/Stent Removal Urology Med: Oxybutynin, Tamsulosin Antibiotic Allergy:None Blood Thinner: None Patient has string Allergies No Known Allergies Allergy (Verified 05/08/24 11:17) HPI Comments Details: Chirag is a pleasant male. He is a patient of . He is seen for the following urologic conditions - nephrolithiasis - renal cell carcinoma Completed procedure Stent on string Removed in office today Nephrolithiasis Prior partial nephrectomy open 2004 Dr. Amor Appears to have developed lower pole stone Prior ESWL Concomitant diabetes with metformin Imaging - 12/28 CT Right dominant calculus has a somewhat staghorn appearance measuring up to 2.5 cm - 01/29 x-ray with right lower pole kidney stone 1.2 cm Intervention - 02/27 ureteroscopy with laser lithotripsy right side - 03/30 ESWL right with stent removal Stone composition - 03/31 mixed calcium oxalate stone, calcium apatite stone Recommendation for ESWL of remnant fragments [facility] Medical History COPD (chronic obstructive pulmonary disease) Methadone dependence History of kidney cancer Diabetes Surgical History History of kidney surgery Previous back surgery Hx of appendectomy Family History Other Mental health disorder Substance use disorder Social History Household Members: Other Housing: Apartment Alcohol intake: never Patient Tobacco Use Status: Former Tobacco user Tobacco use type: Cigarette e-Cigarette/Vaping Use: Never Used Second Hand Smoke Exposure: Yes Substance Use Type: Marijuana service: No Current occupational status: disabled Current occupational exposures/hazards: No Cognitive needs: No Hearing needs: No Vision needs: No Review of Systems Const Denies chills and Denies fever(s) Card Reports no additional complaints and Denies syncope Resp Denies cough GI Denies abdominal pain and Denies heartburn Reports as per HPI and Denies change in libido Neuro Denies syncope Psych Denies change in libido Endo Denies change in libido Physical Exam Const General: cooperative, healthy appearing, comfortable and no acute distress Orientation/consciousness: patient oriented x3 HEENT Face and sinus: Yes normal facial exam Mouth: moist mucous membranes Neck Neck: Yes normal visual inspection, Yes full ROM and Yes trachea midline Chest Chest palpation & inspection: normal inspection of the chest Resp Effort & Inspection: normal respiratory effort, able to speak in complete sentences and no respiratory distress GI Inspection: Yes normal to inspection Back/Spine/Pelvis Cervical Spine: normal cervical lordosis Thoracic/Lumbar Spine: thoracic and lumbar spine normal to inspection Skin General skin exam: no rashes or lesions noted Neuro General: patient oriented x3, gait normal, tone normal and moves all extremities Extrem General: Yes normal to inspection and Yes capillary refill normal Assessment & Plan Assessment & Plan (1) Hypogonadism in male: Code(s): E29.1 - Testicular hypofunction Category: Medical (2) Staghorn calculus: Code(s): N20.0 - Calculus of kidney Category: Medical Plan Two month follow-up imaging Orders: Orders Testosterone, Free/Total 04/09/24 F11.20 - Opioid dependence, uncomplicated AMB Urinalysis Automated 04/09/24 Z13.9 - Encounter for screening, unspecified US renal BI 2 Months N20.0 - Calculus of kidney Patient Instructions: Imaging studies, laboratory and physical exam results were discussed and reviewed in detail. No major barriers to patient understanding were identified. An opportunity to ask questions regarding the treatment plan was provided. All questions were answered. The patient expressed understanding and agreement with the above treatment plan. The patient is aware they should contact our office by phone for worsening of their current condition or the appearance of new urologic symptoms. Compliance is encouraged with any medications and followup testing that is ordered. It is a privilege to participate in the urologic care of your patient. If you have any questions or concerns regarding treatment for the above conditions, or other urologic issues, please do not hesitate to contact me. The office telephone contact is [phone]. This note is constructed using voice recognition software. While every effort has been made to ensure accuracy pocket and pulley machine operator errors may have been included. Yours sincerely, Dr Franki Huggins MD, [facility] - Urology Providers of Expert, Compassionate Care for the Genitourinary System Coding Level of Care Code Est Pt Level 3 (81438) Diagnoses Hypogonadism in male E29.1 Staghorn calculus N20.0
== END 2024-04-09 10:50 | disposition home or self-care (01) ==
LOC: HO.HUSH 10:10
PROVIDERS: PCP Nurse Practitioner Family; Visit Provider Urology
DX: E29.1 Testicular hypofunction (principal); N20.0 Calculus of kidney
CPT/HCPCS: 99213

== ENCOUNTER → 2024-04-09 10:09 | Outpatient (BNVA) | payer OTHER, SELFPAY | PROVIDERS: PCP Nurse Practitioner Family; Visit Provider Urology | DX: N20.0 Calculus of kidney (principal); F11.20 Opioid dependence, uncomplicated; Z85.528 Personal history of other malignant neoplasm of kidney; Z79.899 Other long term (current) drug therapy | CPT/HCPCS: 99212 ==

== ENCOUNTER 2024-04-29 11:14 | Outpatient (AMB) | payer OTHER, SELFPAY ==
--- NOTE | 2024-04-29 11:19 | A.OFFVIS_ITS ---
Intake Visit Reasons: Retrograde, Ureteroscopy- follow up Intake Note: Patient is Present for retrograde,ureteroscopy f/u Urology Med: Oxybutynin, Tamsulosin, percocet,oxycodone,dilaudid,pyridium Antibiotic Allergy:None Blood Thinner: None Picker/Puller Required: No Allergies No Known Allergies Allergy (Verified 05/08/24 11:17) Medication List - Last Reconciled 04/29/24 by Franki Huggins MD [albuterol ] albuterol sulfate 2.5 mg (3 mL) inhalation Q4-6H PRN albuterol sulfate 2.5 mg (3 mL) inhalation Q6H 30 days blood pressure monitor Automatic, Digital. Dx: I10. Daily As directed, 999 days/lifetime blood sugar diagnostic (FreeStyle Lite Strips) As directed check blood sugar twice a day and prn blood-glucose meter (FreeStyle Lite Meter kit) As directed clonidine HCl 0.1 mg PO TID 30 days duloxetine 20 mg PO BID 30 days flash glucose sensor (FreeStyle Clint 2 Sensor kit) As directed glipizide 2.5 mg PO DAILY 90 days hydromorphone (Dilaudid) 2 mg PO Q4H PRN 7 days insulin glargine (Lantus Solostar U-100 Insulin) 5 units (0.05 mL) subcut QPM 30 days lancets (FreeStyle Lancets) As directed check blood sugar twice a day and prn as needed losartan 100 mg PO DAILY 90 days meloxicam 15 mg PO DAILY 30 days methadone 20 mg PO DAILY nebulizers (AeroEclipse II Nebulizer) As directed, 999 days omeprazole 40 mg PO DAILY 30 days oxybutynin chloride 5 mg PO BID PRN oxycodone 5 - 10 mg (1 - 2 x 5 mg) PO Q4H PRN 3 days oxycodone-acetaminophen 5-325 mg (Percocet) 1 tab PO Q8H PRN 3 days pen needle, diabetic (BD Sabrina 2nd Gen Pen Needle) To treat Blood sugar daily As directed, 90 days phenazopyridine (Pyridium) 100 mg PO TID PRN 4 days tamsulosin 0.4 mg PO BEDTIME 14 days HPI Comments Details: Chirag is a pleasant male. He is a patient of . He is seen for the following urologic conditions - nephrolithiasis - renal cell carcinoma Follow-up Recommend 24 Litholink Start potassium citrate Imaging today Nephrolithiasis Prior partial nephrectomy open 2004 Dr. Amor Appears to have developed lower pole stone Prior ESWL Concomitant diabetes with metformin Imaging - 12/28 CT Right dominant calculus has a somewhat staghorn appearance measuring up to 2.5 cm - 01/29 x-ray with right lower pole kidney stone 1.2 cm Intervention - 02/27 ureteroscopy with laser lithotripsy right side - 03/30 ESWL right with stent removal - 02/28 ureteroscopy with laser lithotripsy Composition - 03/31 Calcium Oxalate Dihydrate (Weddellite) 30%Calcium Oxalate Monohydrate (Whewellite) 35%Carbonate Apatite (Dahllite) 35% PFSH Medical History COPD (chronic obstructive pulmonary disease) Methadone dependence History of kidney cancer Diabetes Surgical History History of kidney surgery Previous back surgery Hx of appendectomy Family History Other Mental health disorder Substance use disorder Social History Household Members: Other Housing: Apartment Alcohol intake: never Patient Tobacco Use Status: Former Tobacco user Tobacco use type: Cigarette e-Cigarette/Vaping Use: Never Used Second Hand Smoke Exposure: Yes Substance Use Type: Marijuana service: No Current occupational status: disabled Current occupational exposures/hazards: No Cognitive needs: No Hearing needs: No Vision needs: No Review of Systems Const Denies chills and Denies fever(s) Card Reports no additional complaints and Denies syncope Resp Denies cough GI Denies abdominal pain and Denies heartburn Reports as per HPI and Denies change in libido Neuro Denies syncope Psych Denies change in libido Endo Denies change in libido Physical Exam Const General: cooperative, healthy appearing, comfortable and no acute distress Orientation/consciousness: patient oriented x3 HEENT Face and sinus: Yes normal facial exam Mouth: moist mucous membranes Neck Neck: Yes normal visual inspection, Yes full ROM and Yes trachea midline Chest Chest palpation & inspection: normal inspection of the chest Resp Effort & Inspection: normal respiratory effort, able to speak in complete sentences and no respiratory distress GI Inspection: Yes normal to inspection Back/Spine/Pelvis Cervical Spine: normal cervical lordosis Thoracic/Lumbar Spine: thoracic and lumbar spine normal to inspection Skin General skin exam: no rashes or lesions noted Neuro General: patient oriented x3, gait normal, tone normal and moves all extremities Extrem General: Yes normal to inspection and Yes capillary refill normal Assessment & Plan Assessment & Plan (1) Hypogonadism in male: Code(s): E29.1 - Testicular hypofunction Category: Medical (2) Staghorn calculus: Code(s): N20.0 - Calculus of kidney Category: Medical Plan Start potassium citrate Perform Urorisk Three-month follow-up testosterone Orders: Orders URORISK 04/29/24 N20.0 - Calculus of kidney XR KUB 04/29/24 N20.0 - Calculus of kidney Testosterone, Free/Total 3 Months G89.29 - Other chronic pain Medications: New potassium citrate ER 20 mEq (2 x 10 mEq (1,080 mg)) PO BID 360 tabs 1RF 90 days N20.0 - Calculus of kidney Patient Instructions: Imaging studies, laboratory and physical exam results were discussed and reviewed in detail. No major barriers to patient understanding were identified. An opportunity to ask questions regarding the treatment plan was provided. All questions were answered. The patient expressed understanding and agreement with the above treatment plan. The patient is aware they should contact our office by phone for worsening of their current condition or the appearance of new urologic symptoms. Compliance is encouraged with any medications and followup testing that is ordered. It is a privilege to participate in the urologic care of your patient. If you have any questions or concerns regarding treatment for the above conditions, or other urologic issues, please do not hesitate to contact me. The office telephone contact is [phone]. This note is constructed using voice recognition software. While every effort has been made to ensure accuracy baggage and mail agent errors may have been included. Yours sincerely, Dr Franki Huggins MD, [facility] - Urology Providers of Expert, Compassionate Care for the Genitourinary System Coding Level of Care Code Est Pt Level 4 (56721) Diagnoses Hypogonadism in male E29.1 Staghorn calculus N20.0
== END 2024-04-29 12:08 | disposition home or self-care (01) ==
LOC: HO.HUSH 11:14
PROVIDERS: PCP Nurse Practitioner Family; Visit Provider Urology
DX: E29.1 Testicular hypofunction (principal); N20.0 Calculus of kidney
CPT/HCPCS: 99214

== ENCOUNTER 2024-04-29 11:14 | Outpatient (REF) | payer OTHER, SELFPAY ==
--- NOTE | ~2024-04-29 | XR_ITS ---
EXAMINATION: XR ABDOMEN KUB CLINICAL INDICATION: Calculus of kidney COMPARISON: KUB radiograph from 01/03/2024 TECHNIQUE: AP view of the abdomen. FINDINGS: Previously identified calcifications overlying the right renal shadow are no longer visualized. No radiopaque calcifications overlying the left renal shadow or bilateral ureteral paths. Surgical material noted in the region of the right medial hemiabdomen. Bowel gas is nonobstructive with fecal loading the visualized colon. Lumbosacral spinal hardware, stable. Visualized portions of the lower chest demonstrate atelectasis versus trace left pleural effusion. Soft tissues are unremarkable. XR/XR KUB IMPRESSION: 1. Previously identified calcifications overlying the right renal shadow are no longer visualized. 2. No radiopaque calcifications overlying the left renal shadow or bilateral ureteral paths. 3. Surgical material noted in the region of the right medial hemiabdomen. 4. Bowel gas is nonobstructive with fecal loading the visualized colon. 5. Visualized portions of the lower chest demonstrate atelectasis versus trace left pleural effusion.
== END 2024-04-29 11:15 | disposition home or self-care (01) ==
LOC: HO.XRAY 11:14
PROVIDERS: PCP Nurse Practitioner Family; Visit Provider Urology
DX: N20.0 Calculus of kidney (principal); G89.29 Other chronic pain
CPT/HCPCS: 74018; 99212

== ENCOUNTER 2024-05-08 11:09 | Outpatient (AMB) | payer OTHER, SELFPAY ==
--- NOTE | 2024-05-08 11:15 | MHC.PC.OV ---
Vital Signs 05/08/24 11:17 Height 6 ft 2 in Weight 173 lb 2 oz BMI 22.2 BP 160/86 H Blood Pressure Location Lt brachial Position Sitting Pulse 94 Pulse Source Pulse Oximeter Pulse Oximetry (%) 96 Oxygen Delivery Method Room Air Intake Visit Reasons: est/ puffy left side of belly from insulin shot Intake Note: Patient is here to follow up on right side pain of flank . Delivery Rep Required: No Data Processing Mechanic: Not Required per policy Accompanied by: Self / Same As Patient Allergies No Known Allergies Allergy (Verified 05/08/24 11:17) Tobacco use date assessed: 05/08/24 Dental Screening Dental Screen Date: 02/19/24 HPI est/ puffy left side of belly from insulin shot HPI Details 53 y/o male presents today with complaints of swelling of belly after insulin shot. Denies any fevers/chills. Denies any abnormal urine/stools. Denies any constipation or diarrhea. Denies any breathing difficulties. Swelling started 3 days ago. Does have hx of kidney cancer, R side. Hx of partial nephrectomy, R. Blood pressure today 160/86, 94p. He is on losartan 100mg daily. [facility] Medical History COPD (chronic obstructive pulmonary disease) Methadone dependence History of kidney cancer Diabetes Surgical History History of kidney surgery Previous back surgery Hx of appendectomy Family History Other Mental health disorder Substance use disorder Social History Household Members: Other Housing: Apartment 75 years or older and lives alone: No Alcohol intake: never Patient Tobacco Use Status: Former Tobacco user Tobacco use type: Cigarette e-Cigarette/Vaping Use: Never Used Second Hand Smoke Exposure: Yes Substance Use Type: Marijuana service: No Current occupational status: disabled Current occupational exposures/hazards: No Cognitive needs: No Hearing needs: No Vision needs: No Questionnaire Thrive Questionnaire Date Thrive assessed: 02/19/24 KI-7 AMB Questionnaire KI-7 Date KI - 7 assessed: 02/19/24 Source: Developed by Melinda MonkW. Caleb, Tray Patel and colleagues, with an educational zenaida from [employer]. Review of Systems Const Denies chills, Denies fatigue, Denies fever(s), Denies headache(s) and Denies weakness ENT Denies dizziness and Denies headache(s) Card Denies dyspnea Resp Denies cough, Denies dyspnea, Denies wheezing and Denies other (shortness of breath) Musc Denies numbness and Denies tingling Neuro Denies dizziness, Denies headache(s), Denies numbness, Denies tingling and Denies weakness Psych Denies anxiety and Denies depression Endo Denies fatigue Aller/Immun Denies wheezing Physical exam (Primary Care) Vital Signs: Last Vital Signs Pulse 94 05/08/24 11:17 BP 160/86 H 05/08/24 11:17 Pulse Ox 96 05/08/24 11:17 Oxygen Delivery Method Room Air 05/08/24 11:17 BMI result Body Mass Index 22.2 Tobacco/Smoking Status: Tobacco use Status Tobacco use date assessed 05/08/24 05/08/24 11:23 Patient Tobacco Use Status Former Tobacco user 05/08/24 11:23 Tobacco use type Cigarette 05/08/24 11:23 e-Cigarette/Vaping Use Never Used 05/08/24 11:23 Thrive Assessment: Date of Thrive Assessment Date Thrive assessed 02/19/24 05/08/24 11:23 Const General: well developed; No acute distress Nutritional Appearance: well nourished Orientation/consciousness: patient oriented x3 [facility]: Yes normocephalic and Yes atraumatic Eyes General: appearance normal, both eyes and all related structures Pupils: Equal, round and reactive pupils present EOM: EOMs intact bilaterally Resp Effort & Inspection: normal respiratory effort Neuro General: patient oriented x3 and gait normal Cranial nerves: Yes Equal, round and reactive pupils present Psych Affect: normal affect Assessment and Plan Assessment & Plan (1) Swelling abdomen: Code(s): R19.00 - Intra-abdominal and pelvic swelling, mass and lump, unspecified site Plan: Patient?has?right-sided?abdominal?swelling?without?significant?erythema?warmth?or?tenderness. Moving?bowels?and?passing?gas No?fevers?or?chills Patient?does?say?that?this?began?after?injecting?his?insulin.??Unclear?if?this?is?related Does?have?palpable?mass?at?right?abdomen. Will?check?CT?abdomen Check?labs (2) Hypertension: Code(s): I10 - Essential (primary) hypertension Plan: Blood?pressure?remains?significantly?elevated Continue?losartan Start?metoprolol Orders: Orders Complete Blood Count Auto Diff Today R19.00 - Intra-abdominal and pelvic swelling, mass and lump, unspecified site, Z00.00 - Encounter for general adult medical examination without abnormal findings CT abdomen wo IV con Today R19.00 - Intra-abdominal and pelvic swelling, mass and lump, unspecified site Comprehensive Met. Panel Today R19.00 - Intra-abdominal and pelvic swelling, mass and lump, unspecified site Medications: New metoprolol succinate ER 50 mg PO DAILY 90 days 90 tabs 2RF Coding Level of Care Code Est Pt Level 3 (17843) Diagnoses Swelling abdomen R19.00 Hypertension I10
[2024-05-08 11:17] VITALS: BP 160/86; PULSE 94; O2SAT 96; BMI 22.2
== END 2024-05-08 12:04 | disposition home or self-care (01) ==
PROVIDERS: PCP Nurse Practitioner Family; Visit Provider Family Medicine
DX: R19.00 Intra-abdominal and pelvic swelling, mass and lump, unspecified site (principal); I10 Essential (primary) hypertension
CPT/HCPCS: 99213

== ENCOUNTER 2024-05-08 12:15 | Outpatient (REF) | payer OTHER, SELFPAY ==
[2024-05-08 14:57] LABS: Appearance Urine Clear; Color Urine Yellow; Glucose Urine UA Negative (Negative); Leukocyte Esterase Urine Negative (Negative); Nitrite Urine Negative (Negative); Urine Blood Negative (Negative); Urine Ketones Negative (Negative); Urine Protein Negative (Neg-Trace)
[2024-05-08 15:10] LABS: Basophils Absolute Auto 0.1 X10*3/uL (0.0-0.2); Basophils Percent Auto 0.8 % (0-2); Eosinophils Absolute Auto 0.4 X10*3/uL (0.0-0.4); Eosinophils Percent Auto 5.9 % (0-4); Hematocrit 36.6 % (42.0-52.0); Hemoglobin 11.2 g/dl (14.0-18.0); Imm Gran Abs Auto 0.04 X10*3/uL (0.00-0.03); Imm Gran Pct Auto 0.6 % (0.0-0.4); Lymphocytes Absolute Auto 2.4 X10*3/uL (1.2-4.9); Mean Corpuscular HGB Conc 30.6 g/dl (31.0-36.0); Mean Corpuscular Hemoglobin 19.3 pg (27.0-33.0); Mean Platelet Volume 10.2 fL (9.4-12.4); Monocytes Absolute Auto 0.7 X10*3/uL (0.1-1.2); Monocytes Percent Auto 9.9 % (2-11); Neutrophils Absolute Auto 3.5 x10*3/uL (2.0-8.3); Neutrophils Percent Auto 48.8 % (45-73); Platelet Count 273 X10*3/uL (160-400); Red Cell Distribution Width 17.9 % (11.0-16.0); White Blood Count 7.1 X10*3/uL (4.8-10.8)
[2024-05-08 15:19] LABS: Mean Corpuscular Volume 63.1 fL (80.0-98.0)
[2024-05-08 15:20] LABS: MANUAL DIFF FLAG SCAN
[2024-05-08 15:41] LABS: SLIDE REVIEW VERIFIED
[2024-05-08 15:52] LABS: Alanine Aminotransferase 15 U/L (0-40); Albumin Level 4.3 g/dL (3.5-5.0); Alkaline Phosphatase 73 U/L (39-117); Anion Gap 10 (12-20); Aspartate Amino Transferase 17 U/L (5-37); Bilirubin Total 0.4 mg/dL (0.0-1.0); Blood Urea Nitrogen 16 mg/dL (9-16); Calcium 9.5 mg/dL (8.4-10.2); Carbon Dioxide 28 mmol/L (22-29); Chloride 106 mmol/L (96-108); Estimated Glomerular Filt Rate > 60; Glucose Fasting 140 mg/dL (60-99); Glucose Random 139 mg/dL (60-115); Potassium 4.1 mmol/L (3.3-5.1); Sodium 140 mmol/L (135-145); Total Protein 7.3 g/dL (6.5-8.0)
[2024-05-08 15:55] LABS: Creatinine Urine 95.23 mg/dL; Microalbumin Urine < 5.0 mg/L
[2024-05-08 15:56] LABS: Prostate Specific Antigen Scr 0.39 ng/mL (<0.05-4.0)
[2024-05-08 16:05] LABS: TSH reflex Free T4 1.03 uIU/mL (0.32-4.0)
[2024-05-18 13:33] LABS: Testosterone, Free 22.8 pg/mL (35.0-155.0); Testosterone, Total 135 ng/dL (250-1100)
== END 2024-05-08 12:16 | disposition home or self-care (01) ==
LOC: HO.WFDLDS 12:15
PROVIDERS: Visit Provider Family Medicine
DX: Z00.00 Encounter for general adult medical examination without abnormal findings (principal); I10 Essential (primary) hypertension; Z12.5 Encounter for screening for malignant neoplasm of prostate; F11.90 Opioid use, unspecified, uncomplicated; R19.00 Intra-abdominal and pelvic swelling, mass and lump, unspecified site
CPT/HCPCS: 36415; 80053; 81003; 82043; 82570; 84153; 84402; 84403; 84443; 85025

== ENCOUNTER 2024-07-29 14:13 | Outpatient (AMB) | payer OTHER, SELFPAY ==
--- NOTE | 2024-07-29 14:15 | MHC.OFFVIS ---
Intake Visit Reasons: 3M Labs/Xray(set) Intake Note: Patient is Present for Telephone Follow Up labs/xray Urology Med: Oxybutynin, Tamsulosin Antibiotic Allergy: None Blood Thinner: None Recent PSA: 05/08/24- 0.39 Recent Testosterone: 05/08/2024 135 Personal Injury Attorney Required: No Allergies No Known Allergies Allergy (Verified 05/08/24 11:17) Medication List - Last Reconciled 07/29/24 by Franki Huggins MD [albuterol ] albuterol sulfate 2.5 mg (3 mL) inhalation Q4-6H PRN albuterol sulfate 2.5 mg (3 mL) inhalation Q6H 30 days blood pressure monitor Automatic, Digital. Dx: I10. Daily As directed, 999 days/lifetime blood sugar diagnostic (FreeStyle Lite Strips) As directed check blood sugar twice a day and prn blood-glucose meter (FreeStyle Lite Meter kit) As directed clonidine HCl 0.1 mg PO TID 30 days duloxetine 20 mg PO BID 30 days duloxetine 20 mg PO BID 30 days flash glucose sensor (FreeStyle Clint 2 Sensor kit) As directed glipizide 2.5 mg PO DAILY 90 days hydromorphone (Dilaudid) 2 mg PO Q4H PRN 7 days insulin glargine (Lantus Solostar U-100 Insulin) 5 units (0.05 mL) subcut QPM 30 days lancets (FreeStyle Lancets) As directed check blood sugar twice a day and prn as needed losartan 100 mg PO DAILY 90 days meloxicam 15 mg PO DAILY 30 days methadone 20 mg PO DAILY metoprolol succinate ER 50 mg PO DAILY 90 days nebulizers (AeroEclipse II Nebulizer) As directed, 999 days omeprazole 40 mg PO DAILY 30 days oxybutynin chloride 5 mg PO BID PRN oxycodone 5 - 10 mg (1 - 2 x 5 mg) PO Q4H PRN 3 days oxycodone-acetaminophen 5-325 mg (Percocet) 1 tab PO Q8H PRN 3 days pen needle, diabetic (BD Sabrina 2nd Gen Pen Needle) To treat Blood sugar daily As directed, 90 days phenazopyridine (Pyridium) 100 mg PO TID PRN 4 days potassium citrate ER 20 mEq (2 x 10 mEq (1,080 mg)) PO BID 90 days tamsulosin 0.4 mg PO BEDTIME 14 days testosterone 50 mg transdermal DAILY 30 days HPI Comments Details: Chirag is a pleasant male. He is a patient of . He is seen for the following urologic conditions - nephrolithiasis - renal cell carcinoma - hypogonadism Telemedicine Evaluation 15 min Consultation [employer] Video Hypo gonadal Background insulin dependent type 2 diabetes Prior opiate use Testosterone - 05/31 135 Start 5 mg gel Restrictions discussed Three-month follow-up lab work Nephrolithiasis Prior partial nephrectomy open 2004 Dr. Amor Appears to have developed lower pole stone Prior ESWL Concomitant diabetes with metformin Imaging - 12/28 CT Right dominant calculus has a somewhat staghorn appearance measuring up to 2.5 cm - 01/29 x-ray with right lower pole kidney stone 1.2 cm Intervention - 02/27 ureteroscopy with laser lithotripsy right side - 03/30 ESWL right with stent removal - 02/28 ureteroscopy with laser lithotripsy Composition - 03/31 Calcium Oxalate Dihydrate (Weddellite) 30%Calcium Oxalate Monohydrate (Whewellite) 35%Carbonate Apatite (Dahllite) 35% PFSH Medical History COPD (chronic obstructive pulmonary disease) Methadone dependence History of kidney cancer Diabetes Surgical History History of kidney surgery Previous back surgery Hx of appendectomy Family History Other Mental health disorder Substance use disorder Social History Household Members: Other Housing: Apartment 75 years or older and lives alone: No Alcohol intake: never Patient Tobacco Use Status: Former Tobacco user Tobacco use type: Cigarette e-Cigarette/Vaping Use: Never Used Second Hand Smoke Exposure: Yes Substance Use Type: Marijuana service: No Current occupational status: disabled Current occupational exposures/hazards: No Cognitive needs: No Hearing needs: No Vision needs: No Review of Systems Const All systems reviewed & are unremarkable except as noted in HPI and below Reports no additional complaints Resp Reports no additional complaints GI Reports no additional complaints Reports as per HPI Musc Reports no additional complaints Physical Exam Telemedicine evaluation Appropriate responses Regular breathing rate and rhythm HEENT Head: Yes normal to inspection Ears: hearing grossly normal bilaterally Eyes General: appearance normal, both eyes and all related structures Neck Neck: Yes normal visual inspection Chest Chest palpation & inspection: normal inspection of the chest Resp Effort & Inspection: normal respiratory effort and able to speak in complete sentences Telehealth Telehealth Telehealth Platform: [employer] Location of provider rendering services: practice address Location of patient: address on file Patient Identification confirmed using: Name, : Yes Telehealth method: video Patient verbally consented to treatment: Yes Patient verbally consented to billing insurance company: Yes Patient informed of any privacy concerns related to visit: Yes Minutes spent on Phone/Video with Pt.: 15 Assessment & Plan Assessment & Plan (1) Hypogonadism in male: Code(s): E29.1 - Testicular hypofunction Category: Medical (2) H/O partial nephrectomy: Comment: Right?partial?nephrectomy?secondary?to?renal?cancer. Still?has?left?kidney?and 3/4 right?kidney Code(s): Z90.5 - Acquired absence of kidney Category: Surgical (3) Right renal stone: Code(s): N20.0 - Calculus of kidney Category: Medical Plan Start testosterone Three-month follow-up labs office Orders: Orders Testosterone, Total 2 Months E29.1 - Testicular hypofunction Medications: New testosterone apply 1 packet daily 50 mg transdermal DAILY 30 days 150 grams 2RF E29.1 - Testicular hypofunction Patient Instructions: Imaging studies, laboratory and physical exam results were discussed and reviewed in detail. No major barriers to patient understanding were identified. An opportunity to ask questions regarding the treatment plan was provided. All questions were answered. The patient expressed understanding and agreement with the above treatment plan. The patient is aware they should contact our office by phone for worsening of their current condition or the appearance of new urologic symptoms. Compliance is encouraged with any medications and followup testing that is ordered. It is a privilege to participate in the urologic care of your patient. If you have any questions or concerns regarding treatment for the above conditions, or other urologic issues, please do not hesitate to contact me. The office telephone contact is [phone]. This note is constructed using voice recognition software. While every effort has been made to ensure accuracy cream hauler errors may have been included. Yours sincerely, Dr Franki Huggins MD, [facility] - Urology Providers of Expert, Compassionate Care for the Genitourinary System Coding Level of Care Code Est Pt Level 4 (73870) Diagnoses Hypogonadism in male E29.1 H/O partial nephrectomy Z90.5 Right renal stone N20.0
== END 2024-07-29 15:02 | disposition home or self-care (01) ==
LOC: HO.HUSH 14:13
PROVIDERS: PCP Nurse Practitioner Family; Visit Provider Urology
DX: E29.1 Testicular hypofunction (principal); Z90.5 Acquired absence of kidney; N20.0 Calculus of kidney
CPT/HCPCS: 99214

== ENCOUNTER → 2024-07-29 14:13 | Outpatient (BNVA) | payer OTHER, SELFPAY | PROVIDERS: PCP Nurse Practitioner Family; Visit Provider Urology | DX: N20.0 Calculus of kidney (principal); E29.1 Testicular hypofunction; Z90.5 Acquired absence of kidney; Z79.899 Other long term (current) drug therapy | CPT/HCPCS: 99212 ==